=== PATIENT | female | born 1975 | race Caucasian/White ===

== ENCOUNTER 2017-08-11 23:11 | Inpatient (IN) | payer OTHER, MEDICAID ==
[~2017-08-11] VITALS: Ht 162.6 cm; Wt 68.8 kg
[~2017-08-11 23:11] MED LIST: ALPR1TAB7 PO; ENOX40DI8 SUBQ; FERR-74 PO; FURO-129 PO; INSU100V SUBQ; INSU100V7 SUBQ; MTH10T PO; OXYC-530 PO; SYN75 PO
[2017-08-11 23:14] VITALS: BP 143/91; PULSE 108; RESP 20; O2SAT 100
[2017-08-12] VITALS (8 sets, daily range): BP systolic 118–136; BP diastolic 56–80; PULSE 65–110; RESP 16–20; O2SAT 96–98
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
[2017-08-12] MEDS ORDERED: 0.9% Sodium Chloride 1,000 ML IV ONE (01:19)
[2017-08-12 01:35] LABS: BASOPHILS % (AUTO) 0.2 % (0-3); EOSINOPHILS % (AUTO) 1.3 % (0-5); MONOCYTES % (AUTO) 7.8 % (4-12); Mean Corpuscular Hemoglobin 26.3 pg (27.0-35.0); NEUTROPHILS % (AUTO) 77.6 % (40-74); Platelet Count 411 bil/L (150-400)
[2017-08-12] MEDS ORDERED: HYDROmorphone 1 mg/mL Inj IVPUSH ONE (01:35)
[2017-08-12] MEDS ORDERED: HYDROmorphone 0.5 mg/0.5 mL iSecure Syringe IVPUSH ONE (01:40)
[2017-08-12] MEDS ORDERED: Insulin LISPRO 300 Unit/3 mL Inj SUBQ ONE (02:10)
[2017-08-12] MEDS ORDERED: Piperacillin-Tazo 3.375 Gm Inj 3.375 GM in Dextrose 5% Minibag Plus 50 ML IV ONE (03:30)
[2017-08-12] MEDS ORDERED: Vancomycin Dose per Pharmacist XX ONE (04:00)
[2017-08-12] MEDS ORDERED: Vancomycin Inj 1,500 MG in 0.9% Sodium Chloride 500 ML IV ONE (04:05)
[2017-08-12] MEDS ORDERED: Glucose 40% Oral Gel 15 Gm Tube PO PRN (04:25)
[2017-08-12] MEDS ORDERED: Alum-Mag Hydrox-Simeth 30 mL Suspension PO PRN (04:25)
[2017-08-12] MEDS ORDERED: Polyethylene Glycol (PEG) 17 Gm Powder PO PRN (04:25)
[2017-08-12] MEDS ORDERED: Dextrose 10% 250 ML IV PRN (04:35)
--- NOTE | 2017-08-12 04:47 | PCM.HPMED ---
Subjective Date of Service Aug 12, 2017 Primary Provider: Admitting Physician: Primary Care Physician: Paola Attending Physician: Admit Status: From the Emergency Department, Full Admit, Remote Telemetry Chief Complaint: Left shoulder pain History of Present Illness: Adri Lemus is a 41-year-old female with Heroine drug abuse, Hypothyroidism and Diabetes who presents to the emergency department for left shoulder pain. Patient admits to shooting Heroine directly into her left shoulder a few days ago. She has since have increased pain (10/10 intensity without any radiation, sharp and throbbing and swelling. Now the patient is unable to raise her left shoulder due to pain. Denies recent trauma. She has had subjective fevers, but denies chills, nausea, vomiting, chest pain, shortness of breath, abdominal pain , diarrhea, dysuria She mentioned she did have left shoulder surgery around 10 years ago for an abscess. She does have a history of MRSA. Case discussed with Dr Chairez, fluids and antibiotics initiated. Plans for admission Review of Systems: Pertinent positives as noted in HPI. All other systems were reviewed and are negative Allergies Coded Allergies: codeine (Verified Adverse Reaction, Unknown, Rash,Itching,, 08/11/17) Home Medications Lantus 40 units daily Humalog sliding scale Synthroid 100 mcg daily PMH 1. Insulin-dependent diabetes mellitus, on Lantus and lispro. 2. Heroin abuse. 3. Methamphetamine abuse. 4. Hypothyroidism. 5. History of hepatitis C. . Surgical History Cholecystectomy. Family History Positive for diabetes. Social History Hx Alcohol Use: No Hx Substance Use: Yes (meth user) Hx Tobacco Use: Yes Smoking Status: Current Every Day Smoker Exam Vital Signs Vital Sign - Last Date Time Temp Pulse Resp B/P Pulse Ox O2 Delivery O2 Flow Rate FiO2 08/11/17 23:14 37.3 108 20 143/91 100 Room Air Intake and Output 08/11/17 08/11/17 08/12/17 Cumulative From/Thru 15:00 23:00 07:00 08/11/17 23:14 - 08/12/17 02:04 Intake Total 1000 ml 1000 ml Balance 1000 ml 1000 ml Intake IV Total 1000 ml 1000 ml Exam General: Alert, Oriented X3, Cooperative, No acute Distress Eyes: PERRLA, Scleral Anicteric Mouth: Mouth Normal, Mucous Membranes Moist/[place] Neck: Supple, no Thyromegaly, trachea central. Chest & Lungs: Clear to auscultation & percussion, No adventitious breath sounds, no crackles, no wheeze Cardiovascular: Normal S1, Normal S2, No Murmurs/Rubs/Gallops, Regular Rate/ Rhythm Pulses: Radial (present and equal), Dorsalis Pedi (present and equal) Abdomen: Soft, Non-tender, Non-distended, Normoactive bowel tones. Musculoskeletal: Left Deltoid muscle swollen and tender to palpation, limited shoulder range of motion Extremities: No edema, no cyanosis, no clubbing. Skin: multiple scarring with right thigh open wound Neurological: Grossly neurologically intact, Normal Speech, Sensation Intact Lymphatic: Lymph nodes Cervical and Axillary not palpable. Lab and Diagnostics Labs Laboratory Tests Test 08/12/17 01:31 White Blood Count 11.4th/mm3 (3.8-10.1) Red Blood Count 3.76mil/mm3 (3.90-5.20) Hemoglobin 9.9g/dL (12.0-15.6) Hematocrit 31.2% (35.0-46.0) Mean Corpuscular Volume 83.0fL (81-100) Mean Corpuscular Hemoglobin 26.3pg (27.0-35.0) Mean Corpuscular Hemoglobin Concent 31.7% (32.0-37.0) Red Cell Distribution Width 14.6% (12.3-15.4) Platelet Count 411bil/L (150-400) Neutrophils (%) (Auto) 77.6% (40-74) Lymphocytes (%) (Auto) 12.8% (14-46) Monocytes (%) (Auto) 7.8% (4-12) Eosinophils (%) (Auto) 1.3% (0-5) Basophils (%) (Auto) 0.2% (0-3) Sodium Level 130mEq/L (134-144) Potassium Level 4.3mEq/L (3.5-5.2) Chloride Level 88mEq/L (97-108) Carbon Dioxide Level 28mmol/L (18-29) Blood Urea Nitrogen 11mg/dL (6-24) Creatinine 0.47mg/dL (0.57-1.00) Estimat Glomerular Filtration Rate 208mL/min (>59) Glucose Level 543mg/dL (60-99) Lactic Acid Level 3.1mmol/L (0.4-2.0) Calcium Level 8.5mg/dL (8.5-10.1) Total Bilirubin 0.2mg/dL (0.0-1.2) Aspartate Amino Transf (AST/SGOT) 10U/L (0-50) Alanine Aminotransferase (ALT/SGPT) 9U/L (0-32) Alkaline Phosphatase 114U/L (25-150) Total Protein 7.3g/dL (6.4-8.4) Albumin 2.9g/dL (3.4-5.0) Microbiology 08/12/17 Blood Culture, Received Pending Result Diagram: 08/12/17 01308/12/17 013 Assessment & Plan Adri Lemus is a 41-year-old female with Heroine drug abuse, Hypothyroidism and Diabetes who presents to the emergency department for left shoulder pain. 1. Acute left shoulder abscess and cellulitis. Present on admission Likely related to IV injection in the site of infection. Patient has history of multiple skin infections and abscesses. - Vancomycin and Zosyn IV for empiric antibiotics - Blood cultures, complete echo to rule out endocarditis - possibility of underlying abscess general surgery will be consulted - nothing by mouth till surgical evaluation - Dr Hawkins has seen this patient before, his expertise may be required again 2. Lactic acidosis. Present on admission Due to tissue hypoxia from infection. No SIRs criteria met therefore no Sepsis - trending levels till normal - continue IV fluids and treat underlying cause 3. Insulin-dependent diabetes mellitus type 2. Present on admission Uncontrolled and questioning compliance with insulin. Some component of hyperglycemia related to infection - checking A1c - high correction Lispro algorithm 4. Heroine Abuse - treatment withdrawal symptoms symptomatically - Ativan IV as needed - use NSAIDS before resorting to narcotics for pain control 5 Hypothyroidism - continue levothyroxine 100 mcg daily - Acetaminophen as needed for mild pain/fever/headache - Bowel regimen as needed - Antiemetic as needed Patient admitted under inpatient status with expected length of stay > 2 midnights for severity of present symptoms, complexities of treatment plan and risk for adverse event . Resuscitation Status: CPR: Attempt Resuscitation Kvng Max MD Aug 12, 2017 04:40 Kvng Max MD Aug 12, 2017 04:40
[2017-08-12] MEDS: 0.9% Sodium Chloride 1,000 ML IV SCH ×2 (05:19→15:01)
[2017-08-12] MEDS ORDERED: cloNIDine 0.1 mg Tablet PO ONE (05:45)
[2017-08-12] MEDS ORDERED: LEVO100T6 PO (05:54)
--- NOTE | 2017-08-12 06:03 | PCM.CONPHA ---
Subjective Date of Service: Aug 12, 2017 Requesting Provider: Kvng Max MD Left shoulder pain Reason for Pharmacy Consult: Vancomycin Dosing Objective Vital Signs Date Time Temp Pulse Resp B/P Pulse Ox O2 Delivery O2 Flow Rate FiO2 08/12/17 05:49 36.9 98 18 136/64 98 Room Air 08/12/17 05:40 37.0 105 16 122/77 97 Room Air 08/12/17 05:18 37.0 107 20 123/80 96 Room Air 08/11/17 23:14 37.3 108 20 143/91 100 Room Air Weight (Kilograms): 68.800 Height (Feet): 5 Height (Inches): 4.00 Test 08/12/17 01:31 White Blood Count 11.4th/mm3 (3.8-10.1) Red Blood Count 3.76mil/mm3 (3.90-5.20) Hemoglobin 9.9g/dL (12.0-15.6) Hematocrit 31.2% (35.0-46.0) Mean Corpuscular Volume 83.0fL (81-100) Mean Corpuscular Hemoglobin 26.3pg (27.0-35.0) Mean Corpuscular Hemoglobin Concent 31.7% (32.0-37.0) Red Cell Distribution Width 14.6% (12.3-15.4) Platelet Count 411bil/L (150-400) Neutrophils (%) (Auto) 77.6% (40-74) Lymphocytes (%) (Auto) 12.8% (14-46) Monocytes (%) (Auto) 7.8% (4-12) Eosinophils (%) (Auto) 1.3% (0-5) Basophils (%) (Auto) 0.2% (0-3) Sodium Level 130mEq/L (134-144) Potassium Level 4.3mEq/L (3.5-5.2) Chloride Level 88mEq/L (97-108) Carbon Dioxide Level 28mmol/L (18-29) Blood Urea Nitrogen 11mg/dL (6-24) Creatinine 0.47mg/dL (0.57-1.00) Estimat Glomerular Filtration Rate 208mL/min (>59) Glucose Level 543mg/dL (60-99) Lactic Acid Level 3.1mmol/L (0.4-2.0) Calcium Level 8.5mg/dL (8.5-10.1) Total Bilirubin 0.2mg/dL (0.0-1.2) Aspartate Amino Transf (AST/SGOT) 10U/L (0-50) Alanine Aminotransferase (ALT/SGPT) 9U/L (0-32) Alkaline Phosphatase 114U/L (25-150) Total Protein 7.3g/dL (6.4-8.4) Albumin 2.9g/dL (3.4-5.0) Assessment/Plan Assessment/Plan A: * Vancomycin dosing by pharmacy for 41 y/o diabetic woman with left shoulder abscess and cellulitis * The patient received a 1500 mg IV vancomycin loading dose in the ED * She is also being started on Zosyn * Estimated CrCl for this patient is 106 mL/min (Cockcroft & Gault) * Estimated vancomycin half-life is 8 hours and estimated Vd is 46 liters P: * Start vancomycin 1250 mg IV every 12 hours * Target a vancomycin trough of about 15 mcg/mL * Draw a trough level prior to the fourth dose Thank you. Pharmacy will continue to follow this patient. Adelina Mendoza Aug 12, 2017 06:03
--- NOTE | 2017-08-12 06:42 | NUR ---
Admission Pt arrived to [facility] rm 1015 at 0525 from the ED. Pt able to transfer from [facility] to bed with SBA. IV to right upper arm with IV fluids running and zosyn ABO. Vancomycin started. Pt is A/O x3, making needs known. Here with IV drug use abcess. Pt is NPO for pending I/D. CPR. Rates pain 8-9/10. MD prescribed ativan for anxiety/withdraw. Administered and Pt was able to relax. Continues to ask for IV pain meds, conference with her regarding IV pain meds and stated he would see what he could do. At this time no orders rec'd for IV pain meds. Pt stated during assessment that if she can not be kept comfortable she will end up leaving, despite the fact that she wants to get the shoulder taken care of. She is aware of the AMA process. Pt belongings locked up, sharps container removed. Advised Pt all visitors must check in at nurses station and no visitors 7p to 7a. Pt concerned regarding her boyfriends schedule, told her I would speak to staffing account manager regarding him being able to come after 7p. Pt has tele on per orders. Call light in reach. Care continues
[2017-08-12] MEDS: Heparin 5,000 Unit/mL Inj SUBQ SCH ×2 (08:27→15:30)
[2017-08-12] MEDS ORDERED: Vancomycin Dose per Pharmacist XX SCH (08:30)
[2017-08-12] MEDS: Insulin LISPRO 300 Unit/3 mL Inj SUBQ SCH ×4 (09:30→22:04)
--- NOTE | 2017-08-12 09:40 | DRSVH ---
PROCEDURE: CT SHOULDER LEFT WITH CONTRAST ([id number]) INDICATIONS: imda, shoulder pain, ?septic joint TECHNIQUE: After the intra-articular administration of 12 mL of dilute non-ionic contrast, 1-1.5 mm thick sectio ns acquired from the acromioclavicular joint to the inferior scapula, with coronal and sagittal refor matting. COMPARISON: None. FINDINGS: Image quality: Excellent. Bones: No fracture or dislocation. No erosive change or periosteal reaction identified. No joint effu maribeth identified. Soft tissues: Inflammatory changes involving the posterior and lateral left shoulder musculature and subcutaneous fat noted. No discrete fluid collections identified. Visualized lungs are normal. IMPRESSION: 1. Nonspecific inflammatory changes involving the posterior and lateral left shoulder musculature and subcutaneous fat. Recommend correlation with clinical and laboratory data to exclude infectious cell ulitis/myositis. MRI of the left shoulder could be performed for further characterization if clinical ly indicated. 2. No vincenzo evidence of osteomyelitis. CT imaging can be insensitive to osteomyelitis during the init ial 15 days of the disease process. If there is clinical concern for osteomyelitis, then three-phase nuclear medicine bone scan or MRI is warranted. Dictated by: Maribel Davis MD, PhD on 08/12/2017 at 9:31 Approved by: Maribel Davis MD, PhD on 08/12/2017 at 9:38
[2017-08-12] MEDS: HYDROmorphone 0.5 mg/0.5 mL iSecure Syringe IVPUSH PRN ×3 (09:43→20:21)
[2017-08-12 10:06] LABS: BASOPHILS % (AUTO) 0.3 % (0-3); EOSINOPHILS % (AUTO) 1.2 % (0-5); MONOCYTES % (AUTO) 8.9 % (4-12); Mean Corpuscular Hemoglobin 26.6 pg (27.0-35.0); Mean Corpuscular Volume 81.8 fL (81-100); Platelet Count 398 bil/L (150-400)
[2017-08-12 10:23] LABS: INR 0.95 ratio
--- NOTE | 2017-08-12 11:55 | NUR ---
spiritual care: pt request visit attempt: pt sleeping did not rouse to voice. left note on whiteboard
[2017-08-12] MEDS: Piperacillin-Tazo 3.375 Gm Inj 3.375 GM in Dextrose 5% Minibag Plus 50 ML IV SCH ×2 (12:24→16:48)
--- NOTE | 2017-08-12 12:59 | NUR ---
Social Work: Initial Assessment/Multidisciplinary Rounds D: EMR reviewed. Please see Initial Assessment linked to this note for more information. Pt is a 41 year old female admitted [place] with a readmit risk score of 7/8 high risk for left arm cellulitis, hyperglycemia per H&P. Pt is a readmit, admitted July 28 through August 05 for thigh abscess. Pt's insurance is [employer]. Pt has no PCP. Pt discussed in multidisciplinary rounds, ID to see pt. Pt has history of heroin abuse, Substance Abuse order acknowledged. SW met with pt at bedside to conduct initial assessment. Pt was alert but drowsy during this assessment and ultimately fell asleep prior to completing it. SW explained role and wrote phone number on [employer] board. SW provided [facility] Discharge Planning Checklist and encouraged pt to contact SW for any discharge planning questions. Pt lives at home alone in [place]. Pt is independent with ADLs at baseline. Pt uses no DME at baseline. Pt does not drive. Pt has no DPOA on file. KAROLYN will follow up with pt tomorrow when she is more appropriate as she is too drowsy to complete the substance abuse assessment. SW continues to follow. A: Pt who is independent at baseline and has the capacity for self-care. P: Pt anticipated to discharge home, but SW will follow for any discharge needs. KAROLYN will follow up with pt tomorrow when she is more appropriate as she is too drowsy to complete the substance abuse assessment. KAROLYN continues to follow. GHISLAINE Peck Addendum: 08/12/17 at 1302 by WILDER WORTHINGTON Amended: Links added.
[2017-08-12 13:19] LABS: Magnesium 1.8 mg/dL (1.6-2.6)
--- NOTE | 2017-08-12 16:24 | CONS ---
[address] [address] CONSULTATION REPORT PATIENT: MIRELLA GONZALEZ : 1975 MR#: [id number] ADMIT: 08/12/2017 JOB ID: [id number] DATE OF SERVICE: 08/12/2017 INFECTIOUS DISEASE CONSULTATION: I thank Dr. Khoury for this timely consult. REASON FOR CONSULTATION: Left upper extremity soft tissue infection secondary to injection drug use. HISTORY OF PRESENT ILLNESS: The patient is a 41-year-old diabetic woman with a history of essentially daily IM heroin intramuscular injections which go back for years. I had the opportunity to see her here in this hospital exactly one year ago when she had quite an enormous abscess due to Strep anginosus involving her right thigh. She was treated with aggressive surgical debridements as well as dalbavancin and recovered from that. She now presents and was readmitted this morning with a several day history of increasing pain over the left deltoid area which extends down towards the elbow somewhat. She notes some restricted motion of her left shoulder secondary to pain with movement. She notes she has been having some fevers and chills and sweats over the past few days in association with some generalized malaise and some minimal headache. She does not have sore throat, cough, shortness of breath, or overt GI symptoms. She states she has not had any abscesses lately in her lower extremities. She injects drugs but she injects heroin by the IM route into her deltoid area bilaterally, into her thighs bilaterally, and rotates sites. PAST MEDICAL HISTORY: 1. Insulin-dependent diabetes. 2. Intramuscular heroin use. 3. Chronic hepatitis C with measurable viral load demonstrated during her admission last year. 4. Hypothyroidism. SOCIAL HISTORY: The patient is an IM heroin user. She occasionally smokes cigarettes. She does not drink alcohol. She lives in [place], which is in [facility], and she is currently unemployed. FAMILY HISTORY: Negative for tuberculosis. REVIEW OF SYSTEMS: The patient has minimal headache. She reports no change in vision. No sore throat. No stiff neck. No cough, shortness of breath, or chest pain. No nausea, vomiting, or diarrhea. No dysuria. No problems with her lower extremities, good strength and range of motion, but she has considerable pain over her left upper anterior lateral arm, especially involving the area around the deltoid.Remainder of the ROS is negative PHYSICAL EXAMINATION: Reveals a disheveled woman who looks much older than 41. Temperature is 37.2, she has been afebrile during her brief hospital stay. Her pulse is 76, respiratory rate 18, blood pressure 131/76. She is saturating well on room air. She is in no distress. She is awake, alert, and able to give a reasonable history. She is a bit somnolent, though. We had to shake her to get her to wake up but once awake she is fully oriented and conversational and pleasant. Head: Without trauma. No temporal wasting. Eyes: Without conjunctivitis. Oral cavity: No thrush, hairy leukoplakia, or pharyngitis. Neck: Completely supple. No cervical or supraclavicular adenopathy. Lungs: Clear anteriorly at least. Cardiac tones regular rate and rhythm. No significant murmurs are appreciated. Her left upper extremity from about the deltoid down about usp towards the elbow is indurated, firm, previously surgerized, and not especially tender. There may be some tenderness with deep palpation over this region but it is not impressive. The patient cannot abduct or flex at the shoulder joint due to pain. In palpating into the joint itself, there is very minimal tenderness. It does not have the appearance of a septic joint, though that could not be excluded in a patient like this who is a bit sleepy and perhaps receiving pain meds. The abdomen is soft and nontender. There is no organomegaly. She does not have a Stephen. She does not have suprapubic fullness. She does not have inguinal adenopathy. She has one large pustule about 2 cm in the right lateral mid thigh which is shockingly nontender. The remainder of her lower extremities appear uninfected. The patient has numerous filet type debridement scars over both upper extremities as well as both legs, with an especially prominent one over her right lateral upper thigh from her very large debridement last June and July. Neurologically she is intact. LABORATORIES: Include white count 12,000, a little bit of a left shift. 239. Creatinine 0.84. LFTs normal. Albumin 2.9. Urinalysis: 6-10 white cells. Hep C antibody is positive. Hepatitis C viral load 2500. HIV negative. Those hep C studies date from last year, but there has been no history of intercurrent treatment of hepatitis C, so there is no reason to check a viral load on this occasion because it would will not have resolved. It is also worth noting that very low viral load hep C such as this can be associated with progressive disease even though the viral load is low. On the plus side, it is very easy to treat when the viral load is low. Micro studies from last year were positive for Strep anginosus in [place]. Our followup blood cultures here were negative. Today we have a single pending blood culture. IMAGING: Upper extremity CT has already been done. It shows nonspecific inflammatory changes involving the posterior and lateral shoulder musculature. The radiologists were concerned about infectious cellulitis or myositis and recommended an MRI if felt clinically indicated. There was no CT evidence of osteo but CT is not the best study for this. IMPRESSION: This is an unfortunate 41-year-old woman who we saw on got to know year ago. At that time she had a terrible Strep anginosus infection of her right thigh from which she appears to completely recovered except for a large scar. She now presents with a new soft tissue infection probably involving the musculature of the left upper extremity around the shoulder joint. A main concern in a case like this is to exclude the possibility of septic joint, which I find relatively unlikely, but I do think it may be worth pursuing an MRI scan. In terms of her antibiotics she is currently receiving vancomycin and Zosyn, which is a reasonable place to start, but once we have some cultures we will move off this relatively nephrotoxic regimen. We may be inclined to once again use dalbavancin in this patient who is certainly not a good candidate for home parenteral IV antibiotic therapy. RECOMMENDATIONS: 1. Continue with vancomycin and Zosyn. 2. I would strongly consider MRI scan of the left shoulder and left shoulder girdle. 3. A CPK should be obtained as a marker perhaps for myositis or pyomyositis. 4. Will continue to follow this unfortunate patient with you. 5. At some point this patient should be treated for hep C, though such treatment will probably be very easy with the newer active drugs and her very low viral load. 6. Obviously this patient needs drug rehab. Thank you very much. [facility]
--- NOTE | 2017-08-12 16:49 | CONS ---
[address] [address] CONSULTATION REPORT PATIENT: MIRELLA GONZALEZ : 1975 MR#: [id number] ADMIT: 08/12/2017 JOB ID: [id number] DATE OF SERVICE: 08/12/2017 ORTHOPEDIC CONSULTATION: CHIEF COMPLAINT: Left shoulder pain. HISTORY OF PRESENT ILLNESS: This is a 41-year-old, left-hand dominant female that presents with a week-long history of left shoulder pain. She states she had injected heroin into her shoulder a week ago and progressively it started to become painful and limit her motion and use of the left arm. She thus presented to the hospital earlier last night and was started on IV antibiotics. She has also complained of constipation symptoms including fevers sweats, and chills, as well as nausea and vomiting. She describes pain with any mobilization of the shoulder. She states that she injects daily heroin to multiple extremities and has had a previous I and D for the left shoulder for a similar issue; this was several years ago. She denies any paresthesias. She denies any other associated symptoms or injuries. PAST MEDICAL HISTORY: Anxiety, hepatitis C, diabetes. PAST SURGICAL HISTORY: Incision and drainage of left shoulder, cholecystectomy. FAMILY HISTORY: Noncontributory. SOCIAL HISTORY: The patient denies any tobacco utilization. Denies any alcohol utilization. States she only utilizes heroin and has been utilizing it daily for a year. She states she got started with pain medications for her neck and then when her physician retired she switched over to heroin utilization. MEDICATIONS: Please see electronic medical record for a full list of patient's medications. ALLERGIES: CODEINE. REVIEW OF SYSTEMS: The patient has complaints of fevers, sweats, chills, nausea, and vomiting. Denies any chest pain, shortness of breath. Main complaint aside from the constitutional symptoms is left shoulder pain. PHYSICAL EXAMINATION: General: The patient is alert, in no apparent distress. She is slightly drowsy as she just received pain medications. HEENT: Normocephalic, atraumatic. Extraocular movements intact. Nares patent. Lungs: Without wheezing or obvious signs of respiratory distress. Neurologic: Cranial nerves 2-12 intact. Extremities: On gross observation of the patient's left shoulder there is a small pinpoint area of erythema, likely at the patient's previous injection site. There is palpable surrounding induration around the area of erythema and evidence of previous healed incisions from the patient's previous I and D. She demonstrates complete intact sensation in axillary, median, and radial ulnar nerve distribution; palpable distal, radial, and ulnar pulses; and brisk capillary refill to the fingers. She is able to demonstrate a full composite fist, fully extend, as well as abduct and adduct the fingers and the thumb. Elbow range of motion is also full. Shoulder range of motion: Actively she is able to demonstrate 3 degrees of external rotation while lying in bed and forward flexion to 45 degrees with pain at extremes of motion. With passive range of motion the patient is able to forward flex comfortably 80 degrees and externally rotate to 45 degrees, as well as circumduction of the shoulder without any described pain. DIAGNOSTIC STUDIES: Labs obtained at admission and this morning demonstrate an elevated white count initially of 11.4 and this morning at 11.8. ESR as well as CRP are currently pending. A CT was also obtained in the emergency department that demonstrates some evidence of soft tissue inflammatory changes along the deltoid without any evidence of a fluid collection or joint diffusion. IMPRESSION: Left shoulder cellulitis status post heroin injection. PLAN: The patient was discussed in detail her diagnosis. She is currently on antibiotics and we will continue to observe. She had an MRI ordered for later today. Will review the results of the MRI. I will have her n.p.o. at midnight. If she has any worsening of symptoms, then we may take her back for an incision and drainage tomorrow afternoon. Currently no clinic signs of septic arthritis to the shoulder MTDD
--- NOTE | 2017-08-12 18:11 | NUR ---
Shift Note: Patient either slept today or was awake in pain, asking for pain medication. I/D consult, ortho consult, MRI completed. Ortho team will wait for lab results and MRI results to make a decision on a possible procedure for tomorrow. Antibiotics continue. Blood sugars vary wildly today with absence of food and with eating. Patient needs to be watched getting OOB as she is impulsive. Bed alarm on.
[2017-08-12] MEDS: Vancomycin Inj 1,250 MG in 0.9% Sodium Chloride 250 ML IV SCH ×2 (18:23→21:51)
--- NOTE | 2017-08-12 20:13 | DRSVH ---
PROCEDURE: MRI SHOULDER LEFT WITH AND WITHOUT CONTRAST (91108) INDICATIONS: IM drug use, left shoulder pain TECHNIQUE: Noncontrast oblique coronal T1 spin echo and T2 fast spin echo with fat saturation, oblique sagittal T1 spin echo and T2 fast spin echo with fat saturation, axial T1 spin echo and T2 fast spin echo with fat saturation through the shoulder. Post-contrast oblique coronal, oblique sagittal, and axial T1 spin echo with fat saturation through the shoulder. COMPARISON: None. FINDINGS: Image quality: Excellent. Rotator cuff: The supraspinatus, infraspinatus, and subscapularis tendons appear intact throughout. No rotator cuff muscle atrophy on sagittal images. Bones and bursae: No suspicious bone marrow enhancement. No bone marrow contusions or fractures, or evidence of osteomyelitis. No acromioclavicular joint degeneration. The acromion demonstrates conv entional anatomy, without an os acromiale. No pathologic subacromial-subdeltoid or subcoracoid bursa l fluid is present. Capsule and soft tissues: There is, however, abnormal soft tissue enhancement involving the fatty so ft tissues of the left shoulder area and also within the musculature best seen dorsally near the michael ral head. In this area of the musculature there is a finding of intramuscular phlegmon, showing inte rnal and peripheral contrast enhancement, measuring up to 2.1 cm AP, 1.3 cm transverse, and having a craniocaudad length tapering above and below over approximately 3.6 cm inclusive. In the absence of intra-articular contrast, the labrum and glenohumeral ligaments appear intact. The long head of the biceps tendon demonstrates normal location and morphology. The rotator interval appears normal, with out fibrosis. The coracohumeral ligament is normal in thickness. IMPRESSION: Phlegmonous change involves the musculature of the posterior lateral aspect of the left shoulder, with prominent associated intramuscular and adjacent subcutaneous edema but no rim enhancin g fluid collection suggestive of mature abscess is found. The edema pattern lessens more anteriorly, and osteomyelitis or septic arthritis is not identified. The dimension of the area of phlegmonous c hange is 2.1 x 1.3 x 3.6 cm, with with the epicenter of this structure position 4.5 cm posterolateral to the proximal diaphysis of the left humerus. Dictated by: Zaki Gomez M.D. on 08/12/2017 at 20:04 Approved by: Zaki Gomez M.D. on 08/12/2017 at 20:12
--- NOTE | 2017-08-12 22:57 | NUR ---
Blood Sugar Pt's BG was 434 upon HS. Pt. asymptomatic. Insulin lispro given per sliding scale order. Julius COURTNEY night hospitalist paged and made aware. No new orders at this time. Will continue to monitor.
[2017-08-13] VITALS (15 sets, daily range): BP systolic 118–142; BP diastolic 63–87; PULSE 70–89; RESP 16–24; O2SAT 94–100
[2017-08-13] MEDS: Piperacillin-Tazo 3.375 Gm Inj 3.375 GM in Dextrose 5% Minibag Plus 50 ML IV SCH (01:22)
[2017-08-13] MEDS: 0.9% Sodium Chloride 1,000 ML IV SCH ×3 (01:26→20:24)
--- NOTE | 2017-08-13 04:53 | NUR ---
Blood Sugar Pt.'s blood sugar during re-check was 169.
[2017-08-13] MEDS ORDERED: Ketamine 10 mg/mL 20 mL Inj ONE (06:49)
[2017-08-13] MEDS ORDERED: HYDROmorphone 1 mg/mL Inj ONE (06:49)
--- NOTE | 2017-08-13 07:24 | NUR ---
IVT in to place peripheral IV. One attempt then US used. Difficulty cannulating vein, and patient not willing to continue with this or another attempt. No obvious veins noted on feet. RN notified and she will advise .
[2017-08-13] MEDS: Heparin 5,000 Unit/mL Inj SUBQ SCH ×4 (08:30→22:57)
[2017-08-13] MEDS: Insulin LISPRO 300 Unit/3 mL Inj SUBQ SCH ×4 (09:27→20:14)
[2017-08-13] MEDS: oxyCODONE-Acetamin 5-325 mg Tablet PO PRN (09:27)
--- NOTE | 2017-08-13 11:18 | NUR ---
POST HOSPITAL FOLLOW UP: Scheduled appointment for [facility] up [facility] check in at 215PM for 230PM appointment with 08/17/17 Updated SPONSORSHIP COORDINATOR
[2017-08-13] MEDS: LORazepam 1 mg Tablet PO PRN (12:25)
[2017-08-13] MEDS: Amoxicillin-Clav 875-125 mg Tablet PO SCH ×3 (13:00→22:15)
[2017-08-13] MEDS: HYDROmorphone 0.5 mg/0.5 mL iSecure Syringe IVPUSH PRN ×2 (13:09→21:52)
--- NOTE | 2017-08-13 13:10 | PCM.PNMED ---
Subjective Date of Service Aug 13, 2017 Subjective lost IV access. Getting midline today. Going to OR for I&D Exam Vital Signs Vital Sign - Last Date Time Temp Pulse Resp B/P Pulse Ox O2 Delivery O2 Flow Rate FiO2 08/13/17 04:20 36.7 70 16 125/82 98 Room Air Intake and Output 08/12/17 08/12/17 08/13/17 Cumulative From/Thru 14:59 22:59 06:59 08/11/17 23:14 - 08/13/17 05:45 Intake Total 1100 ml 1359 ml 3459 ml Output Total 600 ml 600 ml 1200 ml Balance 500 ml 759 ml 2259 ml Intake Oral 1040 ml 450 ml 1490 ml IV Total 60 ml 909 ml 1969 ml Output Urine Total 600 ml 600 ml 1200 ml # Bowel Movements 0 0 0 Exam General: Alert, Oriented X3, Cooperative, No acute Distress Eyes: PERRLA, Scleral Anicteric Mouth: Mouth Normal, Mucous Membranes Moist/[place] Neck: Supple, no Thyromegaly, trachea central. Chest & Lungs: Clear to auscultation & percussion, No adventitious breath sounds, no crackles, no wheeze Cardiovascular: Normal S1, Normal S2, No Murmurs/Rubs/Gallops, Regular Rate/ Rhythm Pulses: Radial (present and equal), Dorsalis Pedi (present and equal) Abdomen: Soft, Non-tender, Non-distended, Normoactive bowel tones. Musculoskeletal: Left Deltoid muscle swollen and tender to palpation, limited shoulder range of motion Extremities: No edema, no cyanosis, no clubbing. Skin: multiple scarring with right thigh open wound Neurological: Grossly neurologically intact, Normal Speech, Sensation Intact Lymphatic: Lymph nodes Cervical and Axillary not palpable. IVs and Medications Medications Reviewed: Medications were reviewed in detail Lab and Diagnostics Result Diagram: 08/12/17 0750 08/12/17 1239 X-Rays, CTs and MRIs PROCEDURE: MRI SHOULDER LEFT WITH AND WITHOUT CONTRAST (69363) INDICATIONS: IM drug use, left shoulder pain IMPRESSION: Phlegmonous change involves the musculature of the posterior lateral aspect of the left shoulder, with prominent associated intramuscular and adjacent subcutaneous edema but no rim enhancing fluid collection suggestive of mature abscess is found. The edema pattern lessens more anteriorly, and osteomyelitis or septic arthritis is not identified. The dimension of the area of phlegmonous change is 2.1 x 1.3 x 3.6 cm, with with the epicenter of this structure position 4.5 cm posterolateral to the proximal diaphysis of the left humerus. Dictated by: Zkai Gomez M.D. on 08/12/2017 at 20:04 Assessment & Plan Adri Lemus is a 41-year-old female with Heroine drug abuse, Hypothyroidism and Diabetes who presents to the emergency department for left shoulder pain. 1. Acute left shoulder abscess and cellulitis. Present on admission Likely related to IV injection in the site of infection. Patient has history of multiple skin infections and abscesses. - Vancomycin and IV for empiric antibiotics - Blood cultures NGTD, complete echo to rule out endocarditis - possibility of underlying abscess general surgery will be consulted - nothing by mouth per ortho - Dr Hawkins consulted. oritavancin to be given today.patient lost IV access.midline placed by the IV team. -MRSA nares positive. bactroban ointment bid ordered -MRI shoulder as above, no joint or bony involvement 2. Lactic acidosis. Present on admission, resolved Due to tissue hypoxia from infection. No SIRs criteria met therefore no Sepsis - trending levels till normal - continue IV fluids and treat underlying cause 3. Insulin-dependent diabetes mellitus type 2. Present on admission Uncontrolled and questioning compliance with insulin. Some component of hyperglycemia related to infection -She states she takes Lantus 40 units in the morning at home. will start with 20 u daily given npo - checking A1c - high correction Lispro algorithm 4. Heroine Abuse - treatment withdrawal symptoms symptomatically - Ativan IV as needed - use NSAIDS before resorting to narcotics for pain control 5 Hypothyroidism - continue levothyroxine 100 mcg daily - Acetaminophen as needed for mild pain/fever/headache - Bowel regimen as needed - Antiemetic as needed Discharge in 1-2 days. VTE Mechanical Devices: Intermittant Pneumatic CD Resuscitation Status: CPR: Attempt Resuscitation Chauncey Lopes MD Aug 13, 2017 13:10
[2017-08-13] MEDS ORDERED: Oritavancin Diphosphate 1,200 MG in Dextrose 5% 1,000 ML IV ONE (13:30)
[2017-08-13] MEDS ORDERED: Dalbavancin Inj 1,500 MG in Dextrose 5% 500 ML IV ONE (13:30)
[2017-08-13 13:45] LABS: BASOPHILS % (AUTO) 0.2 % (0-3); EOSINOPHILS % (AUTO) 0.3 % (0-5); MONOCYTES % (AUTO) 5.4 % (4-12); Mean Corpuscular Hemoglobin 26.3 pg (27.0-35.0); Mean Corpuscular Volume 78.9 fL (81-100); NEUTROPHILS % (AUTO) 86.4 % (40-74); Platelet Count 439 bil/L (150-400)
--- NOTE | 2017-08-13 14:30 | PROG NOTE ---
[address] [address] PROGRESS NOTE PATIENT: MIRELLA GONZALEZ : 1975 MR#: [id number] ADMIT: 08/12/2017 JOB ID: [id number] DATE: 08/13/2017 REASON FOR FOLLOWUP: Pyomyositis adjacent to left shoulder. INTERVAL HISTORY: The patient complains that she is actively withdrawing from narcotics and having [id number] pain in her left shoulder. She states that she will be leaving AMA soon unless her pain med needs are adequately addressed. She is not having fever or chills but still has considerable pain along the posterior aspect of her left shoulder. No shortness of breath, nausea or vomiting. PHYSICAL EXAMINATION: Reveals an afebrile woman. Temp 36.7, pulse 70, respiratory rate 16, blood pressure 125/82. She is saturating well on room air. Examination of the mental status reveals that she is profoundly dysphoric and unhappy though alert and oriented. Lungs are clear. Cardiac tones without new change. Abdomen without change. Her left posterior shoulder remains quite tender and with restricted range of motion. LABORATORIES: Include white count yesterday 11,000. Sed rate 71. Creatinine 0.84. CRP 3.6. Micro studies include a single set of blood cultures unfortunately which are negative. MRSA screen of the nares is preliminarily positive. IMAGING: Includes the shoulder MRI that we had requested yesterday. It shows a phlegmonous change involving the posterolateral aspect of the shoulder with no clear ring-enhancing fluid suggestive of an abscess, but there is a fluid collection which is 3.6 x 2.1 cm across the center of this developing soft tissue abscess. Is 4.5 cm posterolateral to the proximal diaphysis of the left humerus. This patient now clearly has evidence that she does have a deep muscle soft tissue infection related to her IM narcotic injections. She does not have septic joint or osteo by the MRI scan and it is reassuring. So far, we have no positive cultures. It is worth noting that in the past this patient has had a very severe Strep anginosus infection involving a muscle which required extensive debridement. The likely bugs here would again be Strep anginosus, perhaps MRSA or another Streptococcal species. We are already having a great deal of problems with her IV access as her arms are horribly scarred from prior injection-related issues. RECOMMENDATIONS: 1. I have discussed with the IV management team and they are going to place a midline catheter which hopefully we can use the next few days. 2. Because the patient may sign out at any time and her IV situation is tenuous to say the least, I am going to go ahead and give a single dose of the IV oritavancin so that she will have her treatment dose on board if and when she signs out AMA or when we lose our IV. 3. I would provide some oral broad-spectrum coverage as well for possible anaerobes or limited collection of gram-negatives and for that will use Augmentin. 4. Will continue to follow this complex patient with you.
[2017-08-13] MEDS ORDERED: Dextrose 5% 500 ML ONE (14:31)
[2017-08-13] MEDS: Mupirocin 2% 22 Gm Ointment TOPICAL SCH ×2 (14:47→21:52)
[2017-08-13] MEDS: Insulin GLARgine 100 Unit/mL Syringe SUBQ SCH (14:48)
--- NOTE | 2017-08-13 15:30 | NUR ---
Medication Patient refused to allow lab to come draw blood for labs without IV pain medication. Being unable to give patient any IV medications due to the patient DCing her IV access over night. This also pushed any IV antibiotics back as I was unable to administer them. After receiving an order for PO pain medication, patient was medicated and continued to complain of pain stating "I want the stuff I was getting before in my IV." Continued to inform patient that I was unable to give her anything through her IV as she did not have any access. After midline placement patient did receive IV pain medication and then did continue to ask for PO pain medication. By this time, she was scheduled to go to the OR soon and it was my best judgment to not give her anything more orally. Educated the patient on the importance of staying NPO this close to surgery but did talk with her about her anxiety and being able to receive IVP ativan prior to going to the OR. Patient verbally agreed to having ativan prior to surgery to help calm her anxiety. Patient continued to state "I would like my pain pill now", "I don't understand why I can't have more IV pain medication now because I waited so long this morning because I didn't have an IV. Now I'm trying to pasquale the pain instead of being able to stay on top of it." I talked with the patient about how she did still receive pain medication this morning, just in a different form and that unfortunately we are unable to give her any "missed" doses because they are on schedule and can't be given until the time has been reached. Continuing to educate the patient on pain medication and pain management.
--- NOTE | 2017-08-13 15:55 | NUR ---
To OR Patient to OR. Transferred to [facility] from bed independently. IV saline locked. IVP ativan given prior to going to OR as requested by the patient. Report given to ARLETTE Montgomery.
[2017-08-13] MEDS ORDERED: Lactated Ringer's 500 ML IV PRN (16:07)
[2017-08-13] MEDS ORDERED: Lactated Ringer's 1,000 ML IV SCH (16:07)
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
[2017-08-13] MEDS ORDERED: Ondansetron 2 mg/mL 2 mL Inj IVPUSH PRN (16:10)
[2017-08-13] MEDS ORDERED: Dexamethasone 4 mg/mL Inj IVPUSH PRN (16:10)
[2017-08-13] MEDS ORDERED: Phenylephrine 10,000 mCg/mL Inj IVPUSH PRN (16:10)
[2017-08-13] MEDS ORDERED: EPHEDrine Sulfate 50 mg/mL Inj IVPUSH PRN (16:10)
--- NOTE | 2017-08-13 16:24 | NUR ---
spiritual care: pt request visit attempts; pt sleeping or in procedure.
[2017-08-13] MEDS ORDERED: Polyethylene Glycol (PEG) 17 Gm Powder PO PRN (16:50)
[2017-08-13] MEDS ORDERED: diphenhydrAMINE 25 mg Capsule PO PRN (16:50)
[2017-08-13] MEDS ORDERED: Magnesium Hydroxide 10 mL Oral Concentration PO PRN (16:50)
[2017-08-13] MEDS ORDERED: Sodium Biphos-Phos 133 mL Enema RECTAL PRN (16:50)
[2017-08-13] MEDS ORDERED: Bacitracin 50,000 unit Inj IRRIGATION ONE (17:29)
[2017-08-13] MEDS ORDERED: Vancomycin Serum Trough XX ONE (17:30)
[2017-08-13] MEDS ORDERED: fentaNYL-PF 50 mCg/mL 2 mL Inj ONE (19:23)
[2017-08-13] MEDS: fentaNYL-PF 50 mCg/mL 2 mL Inj IVPUSH PRN ×3 (19:26→23:54)
[2017-08-13] MEDS: Senna-Docusate 8.6-50 mg Tablet PO SCH (20:30)
[2017-08-13] MEDS: Sodium Chloride LOK Flush 10 mL Syringe IV SCH (22:47)
[2017-08-14] MEDS: oxyCODONE-Acetamin 5-325 mg Tablet PO PRN ×3 (00:03→23:44)
[2017-08-14] MEDS: Heparin 5,000 Unit/mL Inj SUBQ SCH ×3 (00:54→16:30)
[2017-08-14] MEDS: HYDROmorphone 0.5 mg/0.5 mL iSecure Syringe IVPUSH PRN ×6 (00:54→20:47)
[2017-08-14] MEDS: fentaNYL-PF 50 mCg/mL 2 mL Inj IVPUSH PRN (03:07)
[2017-08-14] MEDS: LORazepam 1 mg Tablet PO PRN ×2 (03:07→12:25)
--- NOTE | 2017-08-14 03:53 | NUR ---
PAIN/ANXIETY; pt returned from o.r. at 1940. Multiple requests for pain rx. "Ill take anything I can have now." pt kept saying. Ativan seemed to help anxiety but pt kept saying she still has at least 7 to 10/10 shoulder pain. Percocet, sublimaze and dilaudid given. Pt stated dilaudid worked the best. Offered ice pack but pt declined. Ate supper at h.s. and drinking lots of fluids. No c/o nausea or vomiting. Unable to get a true blood sugar at 0300 because pt had a late supper and was drinking juice. Dozed off and on short periods. "i haven't slept in 2 days". pt stated. Addendum: 08/14/17 at 0359 by SHARON SHARP RN Steady on her feet to the bathroom.
[2017-08-14] MEDS: Ondansetron 2 mg/mL 2 mL Inj IVPUSH PRN ×4 (04:12→23:28)
--- NOTE | 2017-08-14 04:22 | NUR ---
GI; ambulated in hallway this a.m. C/o nausea. Back to bed and laid down. Zofran 8mg iv given. Cool washcloth to forehead.
[2017-08-14 04:35] VITALS: BP 150/77; PULSE 74; RESP 17; O2SAT 95
[2017-08-14] MEDS: MetoCLOpramide 5 mg/mL 2 mL Inj IVPUSH PRN ×2 (05:26→08:31)
--- NOTE | 2017-08-14 05:47 | NUR ---
GI; large emesis, partially digested food. Iv fluids cont. at 100cc/hr.
[2017-08-14] MEDS: 0.9% Sodium Chloride 1,000 ML IV SCH ×2 (06:17→16:24)
[2017-08-14 06:36] LABS: BASOPHILS % (AUTO) 0.2 % (0-3); EOSINOPHILS % (AUTO) 0 % (0-5); Mean Corpuscular Hemoglobin 26.3 pg (27.0-35.0); Mean Corpuscular Volume 78.6 fL (81-100); Platelet Count 502 bil/L (150-400)
[2017-08-14] MEDS: Insulin GLARgine 100 Unit/mL Syringe SUBQ SCH (08:15)
--- NOTE | 2017-08-14 08:23 | NUR ---
Blood Glucose Checked patient's blood glucose this AM and glucometer read "HI". Rechecked blood glucose with different glucometer and patient's blood glucose read "HI" once again. Administered AM dose of Glargine. Hospitalist paged. Awaiting call back. Addendum: 08/14/17 at 1241 by DANIELLE RANDHAWA RN Consulted with Hospitalist and insulin gtt was ordered and initiated.
[2017-08-14 08:28] VITALS: BP 142/69; PULSE 79; RESP 18; O2SAT 98
[2017-08-14] MEDS: Sodium Chloride LOK Flush 10 mL Syringe IV SCH ×2 (08:30→16:28)
[2017-08-14] MEDS: Senna-Docusate 8.6-50 mg Tablet PO SCH ×2 (08:30→20:30)
[2017-08-14] MEDS: Mupirocin 2% 22 Gm Ointment TOPICAL SCH ×2 (08:31→20:55)
[2017-08-14] MEDS ORDERED: Insulin GLARgine 100 Unit/mL Syringe SUBQ SCH (08:40)
[2017-08-14] MEDS: Insulin LISPRO 300 Unit/3 mL Inj SUBQ SCH (08:41)
[2017-08-14] MEDS ORDERED: Insulin Human REGular Inj 100 UNIT in 0.9% Sodium Chloride-Pha MIX 100 ML IV SCH ×2 (09:13→11:10)
--- NOTE | 2017-08-14 09:17 | PCM.PNORTH ---
Subjective Date of Service: Aug 14, 2017 Visit Information: Reason for Visit L Arm Cellulitis, Hyperglycemia Surgery/Surgery Date L SHOULDER I&D 08/13/17 Post-Op Day # Date of Admission: Aug 12, 2017 at 04:47 Hospital Day # Subjective Patient is status post day #1 left shoulder incision and drainage from abscess due to heroin use. Patient is not complaining of anything today. Will barely wake up and does not speak with us very much. Noncompliant and not willing to sit up for any length of time for dressing change. Seems to roll over and want to go back to sleep despite understanding the need to address the dressing. Postop General: No Complaints, No Shortness of Breath, No Chest Pain Objective Exam Objective Dressing is intact with mild saturation at the lower half of the incision. Patient is alert and oriented 3. Patient has very passive affect and not concerned with what we are doing. Patient able to wiggle fingers and sit up completely, does not appear to be in any acute distress at all. Sensation intact, pulses intact left upper extremity. Upon dressing change the drain is intact and this is removed. No erythema, no discharge from the wound, just a little bleeding. Cultures: Still pending. Vital Signs and I/O Vital Sign - Last Date Time Temp Pulse Resp B/P Pulse Ox O2 Delivery O2 Flow Rate FiO2 08/14/17 08:28 36.4 79 18 142/69 98 Room Air 08/13/17 18:25 8 Intake and Output 08/13/17 08/13/17 08/14/17 Cumulative From/Thru 15:00 23:00 07:00 08/11/17 23:14 - 08/14/17 06:03 Intake Total 1686 ml 2436 ml 7581 ml Output Total 1050 ml 1300 ml 3550 ml Balance 636 ml 1136 ml 4031 ml Intake Oral 0 ml 1556 ml 3046 ml IV Total 1686 ml 880 ml 4535 ml Output Urine Total 1050 ml 1150 ml 3400 ml Emesis 150 ml 150 ml # Bowel Movements 0 0 Lab & Micro Results Laboratory Tests Test 08/13/17 13:37 08/14/17 06:25 White Blood Count 15.1th/mm3 (3.8-10.1) 18.8th/mm3 (3.8-10.1) Red Blood Count 4.26mil/mm3 (3.90-5.20) 3.92mil/mm3 (3.90-5.20) Hemoglobin 11.2g/dL (12.0-15.6) 10.3g/dL (12.0-15.6) Hematocrit 33.6% (35.0-46.0) 30.8% (35.0-46.0) Mean Corpuscular Volume 78.9fL (81-100) 78.6fL (81-100) Mean Corpuscular Hemoglobin 26.3pg (27.0-35.0) 26.3pg (27.0-35.0) Mean Corpuscular Hemoglobin Concent 33.3% (32.0-37.0) 33.4% (32.0-37.0) Red Cell Distribution Width 14.3% (12.3-15.4) 14.4% (12.3-15.4) Platelet Count 439bil/L (150-400) 502bil/L (150-400) Neutrophils (%) (Auto) 86.4% (40-74) 91.0% (40-74) Lymphocytes (%) (Auto) 7.3% (14-46) 5.1% (14-46) Monocytes (%) (Auto) 5.4% (4-12) 3.0% (4-12) Eosinophils (%) (Auto) 0.3% (0-5) 0% (0-5) Basophils (%) (Auto) 0.2% (0-3) 0.2% (0-3) Sodium Level 136mEq/L (134-144) 122mEq/L (134-144) Potassium Level 4.0mEq/L (3.5-5.2) 5.6mEq/L (3.5-5.2) Chloride Level 97mEq/L (97-108) 87mEq/L (97-108) Carbon Dioxide Level 22mmol/L (18-29) 15mmol/L (18-29) Blood Urea Nitrogen 13mg/dL (6-24) 20mg/dL (6-24) Creatinine 0.81mg/dL (0.57-1.00) 1.05mg/dL (0.57-1.00) Estimat Glomerular Filtration Rate 111mL/min (>59) 82mL/min (>59) Glucose Level 241mg/dL (60-99) 785mg/dL (60-99) Calcium Level 8.3mg/dL (8.5-10.1) 7.8mg/dL (8.5-10.1) Hepatitis A Antibody Total Positive (Negative) Hepatitis B Surface Antigen Negative (Negative) Hepatitis B Surface Antibody Reactive (.) Hepatitis B Core Total Antibody Positive (Negative) HIV (1&2) Ag and Ab, 4th Generation Non reactive (Non Reactive) Total Bilirubin 0.4mg/dL (0.0-1.2) Aspartate Amino Transf (AST/SGOT) 18U/L (0-50) Alanine Aminotransferase (ALT/SGPT) 5U/L (0-32) Alkaline Phosphatase 115U/L (25-150) Total Protein 7.2g/dL (6.4-8.4) Albumin 2.5g/dL (3.4-5.0) Microbiology 08/12/17 Blood Culture - Preliminary, Resulted No growth at 2 days; culture examined... 08/12/17 MRSA (PCR) - Final, Complete 08/13/17 Gram Stain - Final, Resulted 08/13/17 Culture & Sensitivity - Preliminary, Resulted Insufficient growth, culture is reinc... 08/13/17 Anaerobic Culture, Resulted Pending Result Diagram: 08/14/17 0625 08/14/17 0625 Assessment & Plan Impression Status post day #1 left shoulder incision and drainage. Patient seems to be stable, culture still pending. Patient not willing to work with this very well at all. Problems: Plan Discussed at length with patient that she should remain in the hospital for at least 1-2 more days until received the culture results and know which antibiotic to place her on. Dressing was changed today and drain was removed. Told patient to keep this clean dry and intact for 3 more days. We would prefer to keep this covered until she returns for suture removal in 2 weeks. Patient may perform range of motion with the shoulder, recommend no heavy lifting or pulling while this incision is healing. We will plan to see the patient tomorrow. Told the patient that we definitely want to see her back at 2 weeks for suture removal and wound check. Resuscitation Status: CPR: Attempt Resuscitation Bam Luevano PA-C Aug 14, 2017 09:17
[2017-08-14] MEDS ORDERED: 0.9% Sodium Chloride 1,000 ML IV ONE (11:05)
[2017-08-14] MEDS: Amoxicillin-Clav 875-125 mg Tablet PO SCH ×2 (12:25→23:43)
--- NOTE | 2017-08-14 12:39 | NUR ---
Medications Imediately after administration of PO medications including antibiotic, pain medication, and ativan the patient became nauseous and had an episode of emesis into the garbage can. IVP antiemetic given prior and after medication administration.
--- NOTE | 2017-08-14 13:00 | NUR ---
Insulin gtt/IV Fluids Bolus of NS ordered by hospitalist due to patient's hyperglycemia and ion gap. Patient has midline IV access that only has one lumen and Insulin drip is infusing and per protocol needs to have it's own pump and hung as a primary on it's own line. Talked with MD about whether he wanted to stop the insulin drip to run the bolus or to continue with the insulin drip. Hospitalist stated that he would like to continue the insulin drip and hold off on the bolus of IV fluids.
[2017-08-14 14:58] LABS: Phosphorus 2.1 mg/dL (2.5-4.9)
--- NOTE | 2017-08-14 15:09 | PCM.PNMED ---
Subjective Date of Service Aug 14, 2017 Subjective Patient's blood glucose last night was 187. Patient reportedly has been drinking orange juice all night. Morning blood glucose 785. Mild acidosis with bicarbonate of 15 and Na 122 . Started insulin drip. Exam Vital Signs Vital Sign - Last Date Time Temp Pulse Resp B/P Pulse Ox O2 Delivery O2 Flow Rate FiO2 08/14/17 08:28 36.4 79 18 142/69 98 Room Air 08/13/17 18:25 8 Intake and Output 08/13/17 08/13/17 08/14/17 Cumulative From/Thru 14:59 22:59 06:59 08/11/17 23:14 - 08/14/17 06:03 Intake Total 1686 ml 2436 ml 7581 ml Output Total 1050 ml 1300 ml 3550 ml Balance 636 ml 1136 ml 4031 ml Intake Oral 0 ml 1556 ml 3046 ml IV Total 1686 ml 880 ml 4535 ml Output Urine Total 1050 ml 1150 ml 3400 ml Emesis 150 ml 150 ml # Bowel Movements 0 0 Exam General: Alert, Oriented X3, Cooperative, No acute Distress Eyes: PERRLA, Scleral Anicteric Mouth: Mouth Normal, Mucous Membranes Moist/[place] Neck: Supple, no Thyromegaly, trachea central. Chest & Lungs: Clear to auscultation & percussion, No adventitious breath sounds, no crackles, no wheeze Cardiovascular: Normal S1, Normal S2, No Murmurs/Rubs/Gallops, Regular Rate/ Rhythm Pulses: Radial (present and equal), Dorsalis Pedi (present and equal) Abdomen: Soft, Non-tender, Non-distended, Normoactive bowel tones. Musculoskeletal: Left Deltoid muscle swollen and tender to palpation, limited shoulder range of motion Extremities: No edema, no cyanosis, no clubbing. Skin: multiple scarring with right thigh open wound Neurological: Grossly neurologically intact, Normal Speech, Sensation Intact Lymphatic: Lymph nodes Cervical and Axillary not palpable. IVs and Medications Medications Reviewed: Medications were reviewed in detail Lab and Diagnostics Result Diagram: 08/14/17 0625 08/14/17 1415 X-Rays, CTs and MRIs PROCEDURE: MRI SHOULDER LEFT WITH AND WITHOUT CONTRAST ([id number]) INDICATIONS: IM drug use, left shoulder pain IMPRESSION: Phlegmonous change involves the musculature of the posterior lateral aspect of the left shoulder, with prominent associated intramuscular and adjacent subcutaneous edema but no rim enhancing fluid collection suggestive of mature abscess is found. The edema pattern lessens more anteriorly, and osteomyelitis or septic arthritis is not identified. The dimension of the area of phlegmonous change is 2.1 x 1.3 x 3.6 cm, with with the epicenter of this structure position 4.5 cm posterolateral to the proximal diaphysis of the left humerus. Dictated by: Zaki Gomez M.D. on 08/12/2017 at 20:04 Assessment & Plan Adri Lemus is a 41-year-old female with Heroine drug abuse, Hypothyroidism and Diabetes who presents to the emergency department for left shoulder pain. #. Acute left shoulder abscess and cellulitis. Present on admission Likely related to IV injection in the site of infection. Patient has history of multiple skin infections and abscesses. - Vancomycin and IV for empiric antibiotics - Blood cultures NGTD, complete echo to rule out endocarditis - possibility of underlying abscess general surgery will be consulted - nothing by mouth per ortho - Dr Hawkins consulted. oritavancin to be given today.patient lost IV access.midline placed by the IV team. -MRSA nares positive. bactroban ointment bid ordered -MRI shoulder as above, no joint or bony involvement # early DKA,not poa,acute -Patient's blood glucose last night was 187. Patient reportedly has been drinking orange juice all night. Morning blood glucose 785. Mild acidosis with bicarbonate of 15 and Na 122 . AG 20 -Started insulin drip,repeat BMP bicarb 20,Na 129 ,AG 13 #. Lactic acidosis. Present on admission, resolved -Due to tissue hypoxia from infection. No SIRs criteria met therefore no Sepsis - trending levels till normal - continue IV fluids and treat underlying cause #. Insulin-dependent diabetes mellitus type 2. Present on admission Uncontrolled and questioning compliance with insulin. Some component of hyperglycemia related to infection -She states she takes Lantus 40 units in the morning at home. will start with 20 u daily given npo - checking A1c - high correction Lispro algorithm #. Heroine Abuse - treatment withdrawal symptoms symptomatically - Ativan IV as needed - use NSAIDS before resorting to narcotics for pain control # Hypothyroidism - continue levothyroxine 100 mcg daily - Acetaminophen as needed for mild pain/fever/headache - Bowel regimen as needed - Antiemetic as needed Discharge in 1-2 days. VTE Mechanical Devices: Intermittant Pneumatic CD Resuscitation Status: CPR: Attempt Resuscitation Chauncey Lopes MD Aug 14, 2017 15:09
--- NOTE | 2017-08-14 16:23 | NUR ---
Insulin gtt Prior to start of drip, I talked with the patient about the importance of checking blood glucose every hour and possibly more frequently if needed as well as keeping the patient NPO to truly regulate her glucose and insulin. She agreed that she would allow me to check her blood sugar when needed and to not have anything to eat or drink. Patient started on insulin drip. Blood glucose flowsheet updated upon every blood glucose check. Orders are for a goal range of 100-180 and once the patient is within goal X4 the drip can be DC'd. At this time, the patient has been in goal range X1. Will recheck blood sugar and adjust drip based on results. Patient does report feeling better than earlier this shift and her nausea has decreased as well as her episodes of emesis. Addendum: 08/14/17 at 1950 by DANIELLE RANDHAWA RN Patient has been within goal X3 and the hospitalist was made aware of the changes to the patient's blood glucose. Talked with the hospitalist, Dr. Lopes, about whether he would want to continue the insulin drip or DC the drip once the patient had stayed within goal range during blood glucose checks. Dr. Lopes requested the insulin drip be continued through the night to assure the patient's blood glucose stays within goal.
--- NOTE | 2017-08-14 18:51 | OP ---
[address] [address] OPERATIVE REPORT PATIENT: MIRELLA GONZALEZ : 1975 MR#: [id number] ADMIT: 08/12/2017 JOB ID: [id number] DATE OF SURGERY: 08/14/2017 PREOPERATIVE DIAGNOSIS(ES): Left shoulder cellulitis and abscess. POSTOPERATIVE DIAGNOSIS(ES): 1. Left shoulder cellulitis and abscess. 2. Left shoulder necrotic muscle. SURGEON: Kamar Quiroz DO PROCEDURE: 1. Irrigation and debridement of left shoulder intramuscular abscess. 2. Debridement of subcutaneous tissue including necrotic muscle of the deltoid measuring approximately 3 x 4 cm in dimension. SURGEON: Kamar Quiroz D.O. ANESTHESIA: General. HISTORY: The patient is a 41-year-old female that presented with a 5-day history of left shoulder pain. She had been injecting heroin into her left shoulder. She has had several instances in the past where she has had to undergo irrigation and debridement for similar issues secondary to abscess abscesses of the shoulder and other extremities. She was not improving on IV antibiotics. A CT and eventually an MRI was obtained. The MRI did demonstrate a small phlegmon collection to the posterior lateral aspect of the deltoid. I discussed with the patient the risks, benefits, alternatives, and indications to proceed with an irrigation and debridement of the left shoulder. She understood the risks include, but are not limited to, neurovascular injury, tendon injury, failure to resolve the infection, stiffness, and persistent pain, all of which may require further intervention. The patient had all questions answered. Consent was signed and placed in the chart. PROCEDURE IN DETAIL: The patient was brought to the operative suite and placed supine on the operating room table. Surgical time-out performed and everyone in the room was in agreement. After appropriate anesthesia was obtained, the patient was placed into the right lateral decubitus position with the body secured with a figueroa bag. All prominences were well padded. The left shoulder and upper extremity were then prepped and draped in sterile fashion. The patient demonstrated a posterior lateral incision from a previous surgery. This same incision was utilized and dissection was carried down through the skin and subcutaneous tissues to the deltoid. The skin flaps were mobilized both anteriorly and posteriorly. As the MRI demonstrated the majority of the fluid collection posteriorly, the majority of the dissection was centered posteriorly. The deltoid was then entered between the middle and posterior raphe, taking care to protect the axillary nerve deep to the deltoid by staying proximal to its course. Dissection through the raphe identified a fluid collection with murky fluid. This area was cultured with aerobic and anaerobic cultures as well as Gram stain. Further dissection to the deltoid yielded a section of necrotic muscle. The necrotic muscle was debrided and excised for a total of 3 x 4 cm dimension. Cores from this were sent to Pathology and additional cultures were obtained. Copious irrigation was performed with normal saline with bacitracin. No further purulence was identified. A deep quarter-inch Horace drain was then placed deep to the deltoid and the skin loosely closed with 3-0 nylon in simple interrupted fashion. The patient was then placed in a bulky soft dressing. ESTIMATED BLOOD LOSS: Less than 25 mL. COMPLICATIONS: None. DISPOSITION: The patient tolerated the procedure well. Anesthesia was reversed. The patient was transferred to the PACU for recovery. SPECIMENS: Two cultures; one superficial and one deep to the deltoid. Sent for Gram stain as well as aerobic and anaerobic cultures. A section of necrotic deltoid area and surrounding fibrous tissue was also sent to pathology as a gross specimen. POSTOPERATIVE PLAN: The patient will be sent back to the floor following recovery in the PACU. Antibiotics will be per infectious disease. The drain will be pulled tomorrow on postoperative day number one and she can start initiating range of motion of the left shoulder. Once the cultures return, the antibiotics can be tailored again per Infectious Disease recommendations. She can be discharged with p.o. antibiotics with followup in the office in two weeks for suture removal.
--- NOTE | 2017-08-14 19:50 | NUR ---
Behavior During this shift, the patient has been cooperative with care and management of her blood glucose and insulin drip. At the beginning of the shift, I talked with the patient about a behavior contract and went over the necessity for care and reinforced the need for lab draws, blood glucose checks, and medication compliance. During this time, the patient only moaned in response. After talking with the patient and informing her of the plan of care, she continued to be compliant with nursing care including lab draws, medication administration, and the frequency of blood glucose checks. Prior to starting the insulin drip, I talked with the patient about starting the insulin drip and that she needs to comply with the maintenance of her blood glucose via the insulin drip order and protocol. At this time, I asked the patient if she was planning on leaving AMA and I informed her that she cannot leave with IV access. The patient stated that she was going to stay "if you keep me comfortable." and would agree to comply with necessary nursing tasks. I educated the patient on s/s of hyperglycemia, which she was experiencing at the time including diaphoresis, headache, weakness, increased thirst, irritability, and n/s. Later in the shift, due to the continuation of nausea and vomiting, I talked with the patient about possible withdrawals. She reported experiencing withdrawals in the past, a history of seizing with withdrawals, and being on methadone treatment prior. The patient reported the last time she used was the day before she was admitted to the hospital. At this time, the patient requested an order for methadone. I told the patient that I would ask the MD about a methadone order and that I would continue to monitor the patient for s/s of hyper/hypoglycemia as well as withdrawal symptoms but that at this time, what she is experiencing could be either. Talked with the hospitalist about the order for medication and he stated that the patient's symptoms were most likely from her hyperglycemia or the infection in her shoulder. MD did not want to order methadone. I informed the patient of this conversation that I had with the hospitalist and she stated "I've gone through the treatment before, I know what it's like. Can I have something to eat? I haven't eaten anything." I informed the patient that we are keeping her NPO to closely regulate her blood sugar and due to her glucose reading being in the 700s this AM and her nausea and vomiting throughout the day, eating probably isn't a good idea and could add to her nausea and vomiting. The patient told me "I have never heard of anyone starving a diabetic because of them being on insulin. Fine. Then I don't want this insulin you're giving me. Take it off. Stop it." I confirmed with the patient and stated "You want to stop the insulin drip because you don't have a diet order and aren't able to eat- is this correct? If I am able to get an order for a diet and you can eat something would you like to continue the insulin drip?". The patient stated "Yes. I just want to eat. I haven't eaten anything all day.". MD paged and patient received new diet order and the insulin drip was continued.
[2017-08-14 20:39] VITALS: BP 144/77; PULSE 79; RESP 18; O2SAT 98
[2017-08-15] MEDS: Sodium Chloride LOK Flush 10 mL Syringe IV SCH ×3 (00:30→16:05)
[2017-08-15] MEDS: HYDROmorphone 0.5 mg/0.5 mL iSecure Syringe IVPUSH PRN ×5 (01:30→20:38)
[2017-08-15] MEDS: Heparin 5,000 Unit/mL Inj SUBQ SCH ×3 (01:30→16:05)
[2017-08-15] MEDS: 0.9% Sodium Chloride 1,000 ML IV SCH ×3 (02:24→22:24)
[2017-08-15 05:02] VITALS: BP 160/89; PULSE 70; RESP 18; O2SAT 96
[2017-08-15 05:36] LABS: APPEARANCE,URINE HAZY (CLEAR,HAZY); COLOR,URINE STRAW (YELLOW); OCCULT BLOOD,URINE LARGE (NEGATIVE); UROBILINOGEN,URINE NORMAL (NORMAL)
--- NOTE | 2017-08-15 06:21 | NUR ---
Insulin Gtt Patient in goal range this shift with rates between 0.5 - 0.8u/hr. Per report patient was to be on insulin drip overnight. Patient requested orange juice during shift but explained that orange juice could make her blood sugar levels spike and offered alternative, patient hesitant but compliant.
[2017-08-15] MEDS: Senna-Docusate 8.6-50 mg Tablet PO SCH ×2 (08:30→20:21)
[2017-08-15 08:48] LABS: BASOPHILS % (AUTO) 0.1 % (0-3); EOSINOPHILS % (AUTO) 1.4 % (0-5); MONOCYTES % (AUTO) 6.2 % (4-12); Mean Corpuscular Hemoglobin 26.5 pg (27.0-35.0); NEUTROPHILS % (AUTO) 76.4 % (40-74); Platelet Count 511 bil/L (150-400)
[2017-08-15 09:00] LABS: Phosphorus 2.2 mg/dL (2.5-4.9)
[2017-08-15] MEDS: Amoxicillin-Clav 875-125 mg Tablet PO SCH ×2 (09:08→20:20)
[2017-08-15] MEDS: Mupirocin 2% 22 Gm Ointment TOPICAL SCH ×2 (09:09→20:21)
[2017-08-15] MEDS: oxyCODONE-Acetamin 5-325 mg Tablet PO PRN ×3 (09:13→18:09)
[2017-08-15] MEDS ORDERED: Insulin GLARgine 100 Unit/mL Syringe SUBQ ONE (10:25)
[2017-08-15 10:42] VITALS: BP 141/69; PULSE 68; RESP 18; O2SAT 98
--- NOTE | 2017-08-15 15:29 | PCM.PNORTH ---
Subjective Date of Service: Aug 15, 2017 Visit Information: Reason for Visit L Arm Cellulitis, Hyperglycemia Surgery/Surgery Date L SHOULDER I&D 08/13/17 Post-Op Day # Date of Admission: Aug 12, 2017 at 04:47 Hospital Day # Subjective Status post day #2 incision and drainage of left shoulder abscess. Patient states she is doing okay still, starting to become a little sore shoulder and wondering if she still has something in there. She understands that she will need to wait one more day to receive appropriate antibiotics pending on what the cultures show. Postop General: No Complaints, No Shortness of Breath, No Chest Pain Objective Exam Objective Patient is alert and oriented 3. Answering questions appropriately. Patient is sitting up in the bed and not in acute distress today. Dressing is clean dry and intact. Patient able to wiggle fingers. Able to gently perform range of motion of the shoulder. Sensation and pulses intact. Vital Signs and I/O Vital Sign - Last Date Time Temp Pulse Resp B/P Pulse Ox O2 Delivery O2 Flow Rate FiO2 08/15/17 10:42 36.7 68 18 141/69 98 Room Air 08/13/17 18:25 8 Intake and Output 08/14/17 08/14/17 08/15/17 Cumulative From/Thru 15:00 23:00 07:00 08/11/17 23:14 - 08/15/17 05:58 Intake Total 500 ml 400 ml 920 ml 9401 ml Output Total 2200 ml 1300 ml 7050 ml Balance 500 ml -1800 ml -380 ml 2351 ml Intake Oral 400 ml 920 ml 4366 ml IV Total 500 ml 5035 ml Output Urine Total 2200 ml 1300 ml 6900 ml Emesis 150 ml # Bowel Movements 1 1 Lab & Micro Results Laboratory Tests Test 08/15/17 04:50 08/15/17 08:25 Urine Color Straw (YELLOW) Urine Appearance Hazy (CLEAR,HAZY) Urine pH 7.0 (5.0-8.0) Urine Specific [place] 1.010 (1.003-1.035) Urine Protein Negativemg/dL (NEG,TRACE) Urine Glucose (UA) 100mg/dL (NEGATIVE) Urine Ketones Negativemg/dL (NEGATIVE) Urine Occult Blood Large (NEGATIVE) Urine Nitrite Negative (NEGATIVE) Urine Bilirubin Negative (NEGATIVE) Urine Urobilinogen Normalmg/dL (NORMAL) Urine Leukocyte Esterase Negative (NEGATIVE) Urine RBC 11-50/hpf (0-2) Urine WBC 0-5/hpf (0-5) Urine Epithelial Cells Occasional/hpf (NONE-MOD) Urine Crystals Amorphous phosphates Urine Bacteria Few/hpf (NONE-FEW) Urine Hyaline Casts None/lpf (NONE) Urine Granular Casts None seen (NONE SEEN) Urine Waxy Casts None seen (NONE SEEN) Urine Red Blood Cell Casts None seen (NONE SEEN) Urine White Blood Cell Casts None seen (NONE SEEN) Urine Mucus Present (None Seen) Urine Trichomonas None seen (NONE SEEN) Urine Yeast None (NONE SEEN) Urinalysis Comment None Urine Culture Reflexed Not indicated White Blood Count 14.1th/mm3 (3.8-10.1) Red Blood Count 3.62mil/mm3 (3.90-5.20) Hemoglobin 9.6g/dL (12.0-15.6) Hematocrit 28.6% (35.0-46.0) Mean Corpuscular Volume 79.0fL (81-100) Mean Corpuscular Hemoglobin 26.5pg (27.0-35.0) Mean Corpuscular Hemoglobin Concent 33.6% (32.0-37.0) Red Cell Distribution Width 14.3% (12.3-15.4) Platelet Count 511bil/L (150-400) Neutrophils (%) (Auto) 76.4% (40-74) Lymphocytes (%) (Auto) 15.3% (14-46) Monocytes (%) (Auto) 6.2% (4-12) Eosinophils (%) (Auto) 1.4% (0-5) Basophils (%) (Auto) 0.1% (0-3) Sodium Level 133mEq/L (134-144) Potassium Level 4.2mEq/L (3.5-5.2) Chloride Level 98mEq/L (97-108) Carbon Dioxide Level 23mmol/L (18-29) Blood Urea Nitrogen 13mg/dL (6-24) Creatinine 0.87mg/dL (0.57-1.00) Estimat Glomerular Filtration Rate 102mL/min (>59) Glucose Level 156mg/dL (60-99) Calcium Level 8.0mg/dL (8.5-10.1) Phosphorus Level 2.2mg/dL (2.5-4.9) Magnesium Level 2.0mg/dL (1.6-2.6) Total Bilirubin 0.2mg/dL (0.0-1.2) Aspartate Amino Transf (AST/SGOT) 16U/L (0-50) Alanine Aminotransferase (ALT/SGPT) 6U/L (0-32) Alkaline Phosphatase 96U/L (25-150) Total Protein 6.8g/dL (6.4-8.4) Albumin 2.8g/dL (3.4-5.0) Microbiology 08/12/17 Blood Culture - Preliminary, Resulted No growth at 2 days; culture examined... 08/12/17 MRSA (PCR) - Final, Complete 08/13/17 Gram Stain - Final, Resulted 08/13/17 Culture & Sensitivity - Preliminary, Resulted Staphylococcus Aureus 08/13/17 Anaerobic Culture - Preliminary, Resulted Result Diagram: 08/15/17 0825 08/15/17 08 Assessment & Plan Impression Status post day number to the left shoulder incision and drainage. Patient is stable, still pending culture results and recommendations per infectious disease. Problems: Plan Discussed at length with patient that she should remain in the hospital for at least 1 more day until received the culture results and know which antibiotic to place her on. Dressing was changed today and drain was removed. Told patient to keep this clean dry and intact for 2 more days. We would prefer to keep this covered until she returns for suture removal in 2 weeks. Patient may perform range of motion with the shoulder, recommend no heavy lifting or pulling while this incision is healing. We will plan to see the patient tomorrow. We will wait to obtain recommendations from infectious disease tomorrow. We definitely want to see her back at 1 week for wound check, then 2 weeks for suture removal. Resuscitation Status: CPR: Attempt Resuscitation Bam Luevano PA-C Aug 15, 2017 15:29
--- NOTE | 2017-08-15 16:48 | NUR ---
Social Work: Attempted CD Assessment SW attempted to meet with pt for CD assessment. Pt sleeping and would not wake up. SW attempted to wake pt several times, pt continues to sleep. SW will attempt assessment again prior to pt discharge. GHISLAINE Hein
--- NOTE | 2017-08-15 17:25 | NUR ---
Insulin gtt stopped dose of Lantus given this am, BG 122, pt has been cooperative, has not talked of leaving AMA, "So I guess I'll be getting discharged in a day or 2"
--- NOTE | 2017-08-15 17:37 | PCM.PNMED ---
Subjective Date of Service Aug 15, 2017 Subjective pain controlled ,glucose controlled and insulin drip switched over to Lantus Exam Vital Signs Vital Sign - Last Date Time Temp Pulse Resp B/P Pulse Ox O2 Delivery O2 Flow Rate FiO2 08/15/17 10:42 36.7 68 18 141/69 98 Room Air 08/13/17 18:25 8 Intake and Output 08/14/17 08/14/17 08/15/17 Cumulative From/Thru 15:00 23:00 07:00 08/11/17 23:14 - 08/15/17 05:58 Intake Total 500 ml 400 ml 920 ml 9401 ml Output Total 2200 ml 1300 ml 7050 ml Balance 500 ml -1800 ml -380 ml 2351 ml Intake Oral 400 ml 920 ml 4366 ml IV Total 500 ml 5035 ml Output Urine Total 2200 ml 1300 ml 6900 ml Emesis 150 ml # Bowel Movements 1 1 Exam General: Alert, Oriented X3, Cooperative, No acute Distress Eyes: PERRLA, Scleral Anicteric Mouth: Mouth Normal, Mucous Membranes Moist/[place] Neck: Supple, no Thyromegaly, trachea central. Chest & Lungs: Clear to auscultation & percussion, No adventitious breath sounds, no crackles, no wheeze Cardiovascular: Normal S1, Normal S2, No Murmurs/Rubs/Gallops, Regular Rate/ Rhythm Pulses: Radial (present and equal), Dorsalis Pedi (present and equal) Abdomen: Soft, Non-tender, Non-distended, Normoactive bowel tones. Musculoskeletal: Left Deltoid muscle swollen and tender to palpation, limited shoulder range of motion Extremities: No edema, no cyanosis, no clubbing. Skin: multiple scarring with right thigh open wound Neurological: Grossly neurologically intact, Normal Speech, Sensation Intact Lymphatic: Lymph nodes Cervical and Axillary not palpable. IVs and Medications Medications Reviewed: Medications were reviewed in detail Lab and Diagnostics Result Diagram: 08/15/1782408/15/17824 X-Rays, CTs and MRIs PROCEDURE: MRI SHOULDER LEFT WITH AND WITHOUT CONTRAST ([id number]) INDICATIONS: IM drug use, left shoulder pain IMPRESSION: Phlegmonous change involves the musculature of the posterior lateral aspect of the left shoulder, with prominent associated intramuscular and adjacent subcutaneous edema but no rim enhancing fluid collection suggestive of mature abscess is found. The edema pattern lessens more anteriorly, and osteomyelitis or septic arthritis is not identified. The dimension of the area of phlegmonous change is 2.1 x 1.3 x 3.6 cm, with with the epicenter of this structure position 4.5 cm posterolateral to the proximal diaphysis of the left humerus. Dictated by: Zaki Gomez M.D. on 08/12/2017 at 20:04 Assessment & Plan Adri Lemus is a 41-year-old female with Heroine drug abuse, Hypothyroidism and Diabetes who presents to the emergency department for left shoulder pain. #. Acute left shoulder abscess and cellulitis s/p I&D . Present on admission Likely related to IV injection in the site of infection. Patient has history of multiple skin infections and abscesses. - Vancomycin and IV for empiric antibiotics - Blood cultures NGTD, - Dr Hawkins consulted. oritavancin given 08/13.patient lost IV access.midline placed by the IV team. -MRSA nares positive. bactroban ointment bid ordered -MRI shoulder as above, no joint or bony involvement # early DKA,not poa,resolved -Patient's blood glucose last night was 187. Patient reportedly has been drinking orange juice on 08/13 night. Morning blood glucose 785. Mild acidosis with bicarbonate of 15 and Na 122 . AG 20 -Started insulin drip,repeat BMP bicarb 20,Na 129 ,AG 13 -acidosis resolved .insulin drip switched over to home Lantus #. Insulin-dependent diabetes mellitus type 2. Present on admission Uncontrolled and questioning compliance with insulin. S -She states she takes Lantus 40 units in the morning at home. - checking A1c - high correction Lispro algorithm #. Heroine Abuse - treatment withdrawal symptoms symptomatically - Ativan IV as needed - use NSAIDS before resorting to narcotics for pain control # Hypothyroidism - continue levothyroxine 100 mcg daily - Acetaminophen as needed for mild pain/fever/headache - Bowel regimen as needed - Antiemetic as needed Discharge tomorrow VTE Mechanical Devices: Intermittant Pneumatic CD Resuscitation Status: CPR: Attempt Resuscitation Chauncey Lopes MD Aug 15, 2017 17:37
[2017-08-15] MEDS: HYDROmorphone 1 mg/mL Inj IVPUSH PRN (18:30)
[2017-08-15 20:26] VITALS: BP 127/76; PULSE 72; RESP 17; O2SAT 96
[2017-08-16] MEDS: oxyCODONE-Acetamin 5-325 mg Tablet PO PRN ×2 (01:02→08:39)
[2017-08-16] MEDS: Heparin 5,000 Unit/mL Inj SUBQ SCH ×2 (01:02→08:41)
[2017-08-16] MEDS: Sodium Chloride LOK Flush 10 mL Syringe IV SCH ×2 (01:02→08:40)
[2017-08-16] MEDS: HYDROmorphone 1 mg/mL Inj IVPUSH PRN ×3 (02:19→11:42)
--- NOTE | 2017-08-16 04:30 | NUR ---
Pain Pt rating pain to left shoulder up to 8/10 and has needed 1 tab Percocet as well as 0.5mg Dilaudid for breakthrough pain. Pt is very anxious about being in hospital and requests Ativan 1mg as well. Left shoulder bulky dressing is CDI. Neuro intact. Pt has been compliant and cooperative with care.
[2017-08-16 04:33] VITALS: BP 145/86; PULSE 71; RESP 16; O2SAT 94
--- NOTE | 2017-08-16 07:57 | PCM.ANEP1 ---
Post Anesthesia PACU Phase 1 Assessment Vital Signs Vital Signs Date Time Temp Pulse Resp B/P Pulse Ox O2 Delivery O2 Flow Rate FiO2 08/16/17 04:33 37.1 71 16 145/86 94 Room Air Anesthetic Administered: GA Level of Alertness: Sleepy, easy to arouse TIDWELL's with Equal Strength: Yes Pain: Yes Pain Scale Score: 5 Nausea or Vomiting: No CV Function & Hydration Stable: Yes Airway Device: none Lungs: Clear to Auscultation, Normal Air Movement Dermatome Level: Full Sensation PACU Phase 2 Assessment Complications: No Follow up Care: No Patient Instructions Provided: N/A Maulik Cunningham MD Aug 16, 2017 07:57
[2017-08-16] MEDS: 0.9% Sodium Chloride 1,000 ML IV SCH (08:24)
[2017-08-16] MEDS ORDERED: Insulin GLARgine 100 Unit/mL Syringe SUBQ SCH (08:30)
[2017-08-16] MEDS: Senna-Docusate 8.6-50 mg Tablet PO SCH (08:30)
[2017-08-16] MEDS: Mupirocin 2% 22 Gm Ointment TOPICAL SCH (08:41)
--- NOTE | 2017-08-16 09:02 | PROG NOTE ---
[address] [address] PROGRESS NOTE PATIENT: MIRELLA GONZALEZ : 1975 MR#: [id number] ADMIT: 08/12/2017 JOB ID: [id number] DATE: 08/16/2017 REASON FOR FOLLOWUP: MRSA pyomyositis left shoulder. INTERVAL HISTORY: Over the weekend, the patient's cultures have turned positive for MRSA from the abscess in her left posterior shoulder musculature. She has also undergone incision and drainage by Dr. Quiroz. Some necrotic muscle was debrided and excised and a fairly significant 3 x 4 cm wound created. Recall that earlier in her hospital stay I had seen her, and we have gone ahead and simply given her a single dose dalbavancin anticipating that this would be another Staph or Strep infection and that she would be discharged in the near future. Over the weekend, she has had increasing range of motion of her left shoulder. No fevers, chills or sweats, and she feels improved. Her main complaint is some pain at the operative site, and she is asking for some pain meds upon discharge. PHYSICAL EXAMINATION: Reveals an afebrile woman. Temp 37.1, pulse 71, respiratory rate 16, blood pressure 145/86. She is saturating well on room air. She looks much more composed and well than she did when I first saw her. Oral cavity negative. Lungs essentially clear. Cardiac tones regular rate and rhythm with a 1/6 murmur heard along the right upper sternal border. Abdomen benign. Left shoulder has increasing range of motion. There is a large dressing present over the left deltoid. Mild bilateral edema is noted. LABORATORIES: Include white count yesterday 14,000 down from 18 on the 16th. The diff is essentially normal 76% segs, but much improved. Albumin 2.8. LFTs are normal. Glucose 156. Hep A antibody is positive. Her hep B serologies indicate old infection as her hep B core total is positive, hep B surface antibody reactive, and hepatitis B surface antigen negative. HIV is negative. Recall that this patient has previously been hep C positive with a measurable viral load. Micro studies include negative blood cultures. The abscess is growing MRSA which is susceptible to standard antibiotics. As the vancomycin NITA of 1, which suggests that would be quite susceptible to dalbavancin which is the agent we used. IMPRESSION: This is an unfortunate 41-year-old intramuscular opiate user who has had a long series of soft tissue infections. She now presents with yet another infection this time in her left posterior shoulder musculature and this infection is again due to methicillin resistant Staphylococcus aureus. She has received basically definitive therapy with oritavancin which was given shortly after admission, and I see no need for additional antibiotics at this time. Now that she has undergone definitive debridement. Augmentin had been used early on to provide some additional oral coverage, but that will not be needed given our culture results and we can stop it. RECOMMENDATIONS: 1. The patient can be discharged from an Infectious Disease point of view, as long as she has good followup for her wound. 2. She should continue Bactroban or mupirocin, generic name, to her nares twice a day for 10 days to try and reduce her risk of subsequent MRSA infections. 3. She has low-level positive viremia for hep C. In hepatitis C the level of the viral load does not correlate with risk of progression to cirrhosis. So at some point, she should be treated for hep C, both to prevent cirrhosis from developing in the patient herself as well as to prevent spreading this virus to others with whom she admits sharing needles. 4. ID will go ahead and sign off on this case at this time.
--- NOTE | 2017-08-16 09:22 | PCM.PNORTH ---
Subjective Date of Service: Aug 16, 2017 Visit Information: Reason for Visit L Arm Cellulitis, Hyperglycemia Surgery/Surgery Date L SHOULDER I&D 08/13/17 Post-Op Day # 3 Date of Admission: Aug 12, 2017 at 04:47 Hospital Day # Subjective Patient complains of pain especially during dressing change however she is sleeping on her left shoulder without difficulty Postop General: No Complaints, No Shortness of Breath, No Chest Pain Objective Exam Objective Patient is seen in bed laying on her left shoulder Vital Signs and I/O Vital Sign - Last Date Time Temp Pulse Resp B/P Pulse Ox O2 Delivery O2 Flow Rate FiO2 08/16/17 04:33 37.1 71 16 145/86 94 Room Air 08/13/17 18:25 8 Intake and Output 08/15/17 08/15/17 08/16/17 Cumulative From/Thru 15:00 23:00 07:00 08/11/17 23:14 - 08/16/17 04:33 Intake Total 800 ml 653 ml 33131 ml Output Total 1050 ml 1150 ml 9250 ml Balance -250 ml -497 ml 1604 ml Intake Oral 800 ml 653 ml 5819 ml IV Total 5035 ml Output Urine Total 1050 ml 1150 ml 9100 ml Emesis 150 ml # Bowel Movements 1 Lab & Micro Results Microbiology 08/12/17 Blood Culture - Preliminary, Resulted No growth at 2 days; culture examined... 08/12/17 MRSA (PCR) - Final, Complete 08/13/17 Gram Stain - Final, Resulted 08/13/17 Culture & Sensitivity - Preliminary, Resulted Methicillin Resistant S Aureus 08/13/17 Anaerobic Culture - Preliminary, Resulted Result Diagram: 08/15/17 0825 08/15/17 0825 General Appearance: Alert, Oriented X3, Cooperative, No Acute Distress Extremities: Distal Pulses Palpable, No Compartment Syndrom Noted Postop Sensory Motor: Distal Motor Intact, Distal Sensation Intact, NVI Distally SURGICAL WOUND : Wound Location/Description Left upper extremity: Dressing is removed, there is minimal serous drainage at the distal end of the wound on the bandage. There is no fluctuance. Sutures are intact. No erythema seen. Activity: Ambulating Independently Catheters: None Assessment & Plan Impression POD #3 left shoulder I&D Problems: Plan Dressing was changed today Patient may move shoulder as much as she wishes. Patient will be seen by Dr. Hawkins today for infectious disease consult and possible transition to oral antibiotics Intraoperative Cultures were positive for MRSA Patient will follow up at [facility] in 2 weeks for wound check and suture removal Resuscitation Status: CPR: Attempt Resuscitation Mountain RoadDawn Aguirre PA-C Aug 16, 2017 09:22
--- NOTE | 2017-08-16 12:00 | PCM.DIMED ---
Discharge Instructions Date of Service Aug 16, 2017 Dates of Hospitalization Aug 12, 2017 at 04:47 Discharge Diagnosis Discharge Diagnosis #. Acute left shoulder MRSA abscess and cellulitis s/p I&D . Present on admission,resolved # early DKA,not poa,resolved #. Insulin-dependent diabetes mellitus type 2. Present on admission #. Heroine Abuse # Hypothyroidism Diet Discharge Diet: Diabetic Activity Discharge Activity: Limited until seen by PCP Call your provider Call your provider for: Fever or Chills, Shortness of breath, Bleeding, Chest pain, Vomitting, Excessive diarrhea, Weakness (unilateral) Patient Instructions Patient Instructions #You were hospitalized due to left shoulder MRSA abscess and cellulitis. You underwent incision and drainage . You have been treated with IV antibiotics and received oritavancin ( long acting antibiotic) . No need for antibiotics up on discharge . Please follow up with wound care clinic for dressing change every 3 days. Please follow up with orthopedics in [place] clinic after 2 weeks. #Please take mupirocin nasal ointment to treat MRSA colonization. #Please foloow up with PCP regarding hepatitis c treatment and diabetes control . Follow-up Provider: [facility] Res[facility] Follow-up with PCP in: 1 week Follow-up in: 2 weeks ([facility] ) Chauncey Lopes MD Aug 16, 2017 12:00
[2017-08-16] MEDS ORDERED: OXYC1TAB24 PO (12:01)
[2017-08-16] MEDS ORDERED: MUPI22OI2 TOPICAL (12:01)
--- NOTE | 2017-08-16 14:00 | NUR ---
pt discharged home has f/u appt scheduled at [facility] with Dr Lundberg, and will call for f/u appt with [facility]. Pt is doing well, ortho signs OK, eating/drinking well, ambulatory, good pain control, will not need any further PO/IV antibiotics, has Rx for Bactroban and for Oxycodone
--- NOTE | 2017-08-16 14:48 | NUR ---
Social Work: Discharge/Multidisciplinary Rounds D: EMR reviewed. Pt is on day 4 of hospitalization. Pt discussed in multidisciplinary rounds, and is medically stable for discharge. SW attempted to meet with pt for CD assessment, pt not available. SW left CD resources for pt at bedside. Pt discharged home and was provided information for PCP follow-up appointment with Dr. Lundberg at [facility] residency clinic. A: Pt who is independent at baseline. P: Pt to discharged home today. SW attempted to see pt for CD assessment, pt not available. SW left CD resources at bedside. No other discharge needs identified. GHISLAINE Hein
--- NOTE | 2017-08-16 16:34 | PCM.DC.MED ---
Discharge Summary Date of Service Aug 16, 2017 Dates of Hospitalization Date of Hospital Admission Aug 12, 2017 at 04:47 Date of Discharge: Aug 16, 2017 Providers: Admitting Physician: Kvng Max MD Primary Care Physician: Cindy Hutson DO Attending Physician: Chauncey Johnson MD Diagnosis at Time of Discharge Diagnosis at Time of Discharge #. Acute left shoulder MRSA abscess and cellulitis s/p I&D . Present on admission,resolved # early DKA,not poa,resolved #. Insulin-dependent diabetes mellitus type 2. Present on admission #. Heroine Abuse # Hypothyroidism Consultations ID Dr Hawkins Procedures XRay, CTs & MRIs PROCEDURE: MRI SHOULDER LEFT WITH AND WITHOUT CONTRAST (68007) INDICATIONS: IM drug use, left shoulder pain IMPRESSION: Phlegmonous change involves the musculature of the posterior lateral aspect of the left shoulder, with prominent associated intramuscular and adjacent subcutaneous edema but no rim enhancing fluid collection suggestive of mature abscess is found. The edema pattern lessens more anteriorly, and osteomyelitis or septic arthritis is not identified. The dimension of the area of phlegmonous change is 2.1 x 1.3 x 3.6 cm, with with the epicenter of this structure position 4.5 cm posterolateral to the proximal diaphysis of the left humerus. Dictated by: Zaki Gomez M.D. on 08/12/2017 at 20:04 Brief History pe HPI Adri Lemus is a 41-year-old female with Heroine drug abuse, Hypothyroidism and Diabetes who presents to the emergency department for left shoulder pain. Patient admits to shooting Heroine directly into her left shoulder a few days ago. She has since have increased pain (10/10 intensity without any radiation, sharp and throbbing and swelling. Now the patient is unable to raise her left shoulder due to pain. Denies recent trauma. She has had subjective fevers, but denies chills, nausea, vomiting, chest pain, shortness of breath, abdominal pain , diarrhea, dysuria She mentioned she did have left shoulder surgery around 10 years ago for an abscess. She does have a history of MRSA. Case discussed with Dr Chairez, fluids and antibiotics initiated. Plans for admission Hospital Course Adri Lemus is a 41-year-old female with Heroine drug abuse, Hypothyroidism and Diabetes who presents to the emergency department for left shoulder pain. #. Acute left shoulder MRSA abscess and cellulitis s/p I&D . Present on admission Likely related to IV injection in the site of infection. Patient has history of multiple skin infections and abscesses. - Vancomycin and IV for empiric antibiotics - Blood cultures NGTD, wound culture MRSA - Dr Hawkins consulted. oritavancin given 08/13.patient lost IV access.midline placed by the IV team. -MRSA nares positive. bactroban ointment bid ordered -MRI shoulder as above, no joint or bony involvement # early DKA,not poa,resolved -Patient's blood glucose last night was 187. Patient reportedly has been drinking orange juice on 08/13 night. Morning blood glucose 785. Mild acidosis with bicarbonate of 15 and Na 122 . AG 20 -Started insulin drip,repeat BMP bicarb 20,Na 129 ,AG 13 -acidosis resolved .insulin drip switched over to home Lantus #. Insulin-dependent diabetes mellitus type 2. Present on admission Uncontrolled and questioning compliance with insulin. S -She states she takes Lantus 40 units in the morning at home. #. Heroine Abuse - treatment withdrawal symptoms symptomatically - Ativan IV as needed - percorcet for pain control # Hypothyroidism - continue levothyroxine 100 mcg daily Discharge home Exam Vital Signs (Last) Date Time Temp Pulse Resp B/P Pulse Ox O2 Delivery O2 Flow Rate FiO2 08/16/17 04:33 37.1 71 16 145/86 94 Room Air 08/13/17 18:25 8 Exam General: Alert, Oriented X3, Cooperative, No acute Distress Eyes: PERRLA, Scleral Anicteric Mouth: Mouth Normal, Mucous Membranes Moist/[place] Neck: Supple, no Thyromegaly, trachea central. Chest & Lungs: Clear to auscultation & percussion, No adventitious breath sounds, no crackles, no wheeze Cardiovascular: Normal S1, Normal S2, No Murmurs/Rubs/Gallops, Regular Rate/ Rhythm Pulses: Radial (present and equal), Dorsalis Pedi (present and equal) Abdomen: Soft, Non-tender, Non-distended, Normoactive bowel tones. Musculoskeletal: Left Deltoid muscle swollen and tender to palpation, limited shoulder range of motion Extremities: No edema, no cyanosis, no clubbing. Skin: multiple scarring with right thigh open wound Neurological: Grossly neurologically intact, Normal Speech, Sensation Intact Lymphatic: Lymph nodes Cervical and Axillary not palpable. Test 08/12/17 01:31 08/12/17 07:50 08/12/17 12:39 08/13/17 13:37 Hemoglobin A1c 10.9% (4.8-5.6) C-Reactive Protein 3.6mg/dL (0.0-0.5) Erythrocyte Sedimentation Rate 71mm/hr (0-32) Prothrombin Time 10.1sec (8.1-12.5) Prothromb Time International Ratio 0.95ratio Activated Partial Thromboplast Time 25.1sec (22.8-33.0) Lactic Acid Level 1.2mmol/L (0.4-2.0) Total Creatine Kinase 32U/L (21-215) Hepatitis A Antibody Total Positive (Negative) Hepatitis B Surface Antigen Negative (Negative) Hepatitis B Surface Antibody Reactive (.) Hepatitis B Core Total Antibody Positive (Negative) HIV (1&2) Ag and Ab, 4th Generation Non reactive (Non Reactive) Test 08/15/17 04:50 08/15/17 08:25 Urine Color Straw (YELLOW) Urine Appearance Hazy (CLEAR,HAZY) Urine pH 7.0 (5.0-8.0) Urine Specific [place] 1.010 (1.003-1.035) Urine Protein Negativemg/dL (NEG,TRACE) Urine Glucose (UA) 100mg/dL (NEGATIVE) Urine Ketones Negativemg/dL (NEGATIVE) Urine Occult Blood Large (NEGATIVE) Urine Nitrite Negative (NEGATIVE) Urine Bilirubin Negative (NEGATIVE) Urine Urobilinogen Normalmg/dL (NORMAL) Urine Leukocyte Esterase Negative (NEGATIVE) Urine RBC 11-50/hpf (0-2) Urine WBC 0-5/hpf (0-5) Urine Epithelial Cells Occasional/hpf (NONE-MOD) Urine Crystals Amorphous phosphates Urine Bacteria Few/hpf (NONE-FEW) Urine Hyaline Casts None/lpf (NONE) Urine Granular Casts None seen (NONE SEEN) Urine Waxy Casts None seen (NONE SEEN) Urine Red Blood Cell Casts None seen (NONE SEEN) Urine White Blood Cell Casts None seen (NONE SEEN) Urine Mucus Present (None Seen) Urine Trichomonas None seen (NONE SEEN) Urine Yeast None (NONE SEEN) Urinalysis Comment None Urine Culture Reflexed Not indicated White Blood Count 14.1th/mm3 (3.8-10.1) Red Blood Count 3.62mil/mm3 (3.90-5.20) Hemoglobin 9.6g/dL (12.0-15.6) Hematocrit 28.6% (35.0-46.0) Mean Corpuscular Volume 79.0fL (81-100) Mean Corpuscular Hemoglobin 26.5pg (27.0-35.0) Mean Corpuscular Hemoglobin Concent 33.6% (32.0-37.0) Red Cell Distribution Width 14.3% (12.3-15.4) Platelet Count 511bil/L (150-400) Neutrophils (%) (Auto) 76.4% (40-74) Lymphocytes (%) (Auto) 15.3% (14-46) Monocytes (%) (Auto) 6.2% (4-12) Eosinophils (%) (Auto) 1.4% (0-5) Basophils (%) (Auto) 0.1% (0-3) Sodium Level 133mEq/L (134-144) Potassium Level 4.2mEq/L (3.5-5.2) Chloride Level 98mEq/L (97-108) Carbon Dioxide Level 23mmol/L (18-29) Blood Urea Nitrogen 13mg/dL (6-24) Creatinine 0.87mg/dL (0.57-1.00) Estimat Glomerular Filtration Rate 102mL/min (>59) Glucose Level 156mg/dL (60-99) Calcium Level 8.0mg/dL (8.5-10.1) Phosphorus Level 2.2mg/dL (2.5-4.9) Magnesium Level 2.0mg/dL (1.6-2.6) Total Bilirubin 0.2mg/dL (0.0-1.2) Aspartate Amino Transf (AST/SGOT) 16U/L (0-50) Alanine Aminotransferase (ALT/SGPT) 6U/L (0-32) Alkaline Phosphatase 96U/L (25-150) Total Protein 6.8g/dL (6.4-8.4) Albumin 2.8g/dL (3.4-5.0) Discharge Medications Discharge Medications Insulin Glargine (Lantus U100 Insulin Vial) 100 Unit/Ml Vial 40 UNIT SUBQ AM ( Reported) Levothyroxine (Levothyroxine) 100 Mcg Tablet 100 MCG PO DAILY (Reported) Mupirocin (Mupirocin Ointment) 22 Gm Oint...g. 1 APPLIC TOPICAL BID Prescribed by: CHAUNCEY JOHSNON MD As needed oxyCODONE-Acetaminophen 5-325 mg (oxyCODONE-Acetaminophen 5-325 mg) 1 Each Tablet 1 TAB PO Q6H PRN PRN For Pain Prescribed by: CHAUNCEY JOHNSON MD Followup Plan Disposition: home Discharge Diet: Diabetic Discharge Activity: Limited until seen by PCP Patient Instructions #You were hospitalized due to left shoulder MRSA abscess and cellulitis. You underwent incision and drainage . You have been treated with IV antibiotics and received oritavancin ( long acting antibiotic) . No need for antibiotics up on discharge . Please follow up with wound care clinic for dressing change every 3 days. Please follow up with orthopedics in [place] clinic after 2 weeks. #Please take mupirocin nasal ointment to treat MRSA colonization. #Please foloow up with PCP regarding hepatitis c treatment and diabetes control . Follow-up Provider: [facility] Follow-up with PCP in: 1 week Follow-up in: 2 weeks ([facility]opedics clinic ) Time spent 35 minutes counselling on substance abuse copies to: [facility] Chauncey Johnson MD Aug 16, 2017 16:34
--- NOTE | 2017-08-19 15:22 | PATH ---
SURGICAL PATHOLOGY Attending Physician:Kamar Quiroz MD CASE STATUS: Signed Out PATIENT NAME: MIRELLA GONZALEZ PID: [id number] : 1975 DATE COLLECTED:08/14/2017 00:00 SPECIMEN: Soft Tissue Mass, Biopsy CLINICAL HISTORY: LEFT SHOULDER ABSCESS 1). LEFT SHOULDER SUPERFICIAL TISSUE FINAL DIAGNOSIS: 1.LEFT SHOULDER SUPERFICIAL TISSUE, DEBRIDEMENT: - FRAGMENTS OF FIBROCONNECTIVE TISSUE AND SKELETAL MUSCLE WITH AREAS OF NECROSIS, FIBROSIS, FOREIGN BODY- TYPE GIANT-CELL REACTION, MIXED INFLAMMATION AND GRANULATION TISSUE. ICD10 L08.9 GROSS DESCRIPTION: The specimen is received in formalin, labeled with the patient's name, sublabeled as left shoulder superficial tissue, and consists of multiple pieces of muscle with burns-white rubbery fibrous tissue (2.3 x 2.2 x 0.7 cm in aggregate). Section code: (A) tissue, serially sectioned, accounts receivable representative. 08/17/17 JM MICRO DESCRIPTION: See diagnosis. ICD-9 CODES: CPT CODES: 95699 Electronically Signed Out Derrick Wilder MD [facility] [address], [place] [address] Technical component performed at [facility], [facility] [address], [place], [address]
== END 2017-08-16 14:00 | disposition home or self-care (01) | DRG 317 ==
LOC: SED 23:11 → OBSVTOIN 08-12 04:47 → OSC 08-12 04:47
PROVIDERS: ADMIT Hospitalist; ATTEND Hospitalist
PROC: 0K9 Muscles, Drainage (ICD-10-PCS; 2017-08-13)
PROC: 0KB60ZZ Excision of Left Shoulder Muscle, Open Approach (ICD-10-PCS; principal; 2017-08-13 15:30)
DX: M60.012 Infective myositis, left shoulder (principal); L03.114 Cellulitis of left upper limb; E13.10 Other specified diabetes mellitus with ketoacidosis without coma; E87.2 Acidosis; E11.65 Type 2 diabetes mellitus with hyperglycemia; Z79.4 Long term (current) use of insulin; F11.10 Opioid abuse, uncomplicated; E03.9 Hypothyroidism, unspecified; B18.2 Chronic viral hepatitis C; F17.210 Nicotine dependence, cigarettes, uncomplicated; B95.62 Methicillin resistant Staphylococcus aureus infection as the cause of diseases classified elsewhere